=== PATIENT | female | born 1930 | race Caucasian/White ===

== ENCOUNTER 2017-02-05 07:44 | Day surgery (SDC) | payer BC ==
[2017-02-04 15:14] VITALS: BMI 24.7
[2017-02-05 08:33] VITALS: PULSE 66
[2017-02-05] MEDS: CYCLOPENTOLATE 2% OPHTH SOLN 2 ML BOTTLE ONE ×3 (08:35→08:45)
[2017-02-05] MEDS: PHENYLEPHRINE 2.5% OPHTH SOLN 15 ML BOTTLE ONE ×3 (08:35→08:45)
[2017-02-05] MEDS: TROPICAMIDE 1% OPHTH SOLN 15 ML BOTTLE ONE ×3 (08:35→08:45)
[2017-02-05] MEDS: CIPROFLOXACIN 0.3% EYE DROPS 5 ML BOTTLE ONE ×3 (08:35→08:45)
[2017-02-05] MEDS ORDERED: MIDAZOLAM HCL 2 MG/2 ML SINGLE DOSE VIAL ONE (10:03)
[2017-02-05] MEDS ORDERED: BSS (NA/CA/MG/K) BALANCED SALT SOLUTION OPHTH SOLN 15 ML BOTTLE ONE (10:09)
[2017-02-05] MEDS ORDERED: CARBACHOL 0.01% INTRA-OCULAR 1.5 ML VIAL ONE (10:09)
[2017-02-05] MEDS ORDERED: LIDOCAINE 1% P/F 10 MG/ML VIAL ONE (10:09)
[2017-02-05 11:02] VITALS: BP 106/65
[2017-02-05 11:37] VITALS: TEMP 98
--- NOTE | 2017-02-05 14:19 | OP ---
DATE OF OPERATION: 02/05/2017 OPERATIVE PROCEDURE: Lens Phacoemulsification with Posterior Chamber Intraocular Lens Placement, Right Eye PREOPERATIVE DIAGNOSIS: Visually Significant Cataract of Right Eye POSTOPERATIVE DIAGNOSIS: Visually Significant Cataract of Right Eye SURGEON: Kvng Brice M.D. ANESTHESIA: MAC ANESTHESIOLOGIST: PROCEDURE: The patient was brought to the operating room and placed under monitored anesthesia care by Anesthesia. A drop of Tetracaine was then placed over the right eye. The patient was then prepped and draped in the usual sterile manner. A speculum was then placed over the right eye. The eye was then well irrigated with copious amounts of BSS (balanced salt solution). The operating microscope was then moved into position. A paracentesis was performed using a 15 degree blade. At this point 0.5 mL of 1% preservative free-lidocaine was injected into the anterior chamber. Amvisc plus was then injected into the anterior chamber. A clear corneal incision was then formed using a 2.2 mm keratome. A capsulorrhexis was then performed in a continuous circular fashion beginning with a cystotome completed with an Utratas forceps. Hydrodissection was then performed using BSS on a cannula. The phaco probe was then introduced through the corneal wound and the cataract was removed using the phaco chop technique. Approximately 3 seconds of absolute phaco time was used. The remaining cortex was then removed using irrigation and aspiration with an I/A probe. The capsule was then filled with regular Amvisc and the capsule was noted to be intact. A previously selected foldable posterior chamber intraocular lens was then injected into the capsule through the corneal wound using a lens injector. It was then dialed into position using a Sinskey hook. The Amvisc was then removed using irrigation and aspiration. Miostat was then injected through the paracentesis to constrict the pupil. The paracentesis and corneal wound were then hydrated and noted to be water tight. A drop of Maxitrol was then placed over the eye. The speculum was removed and clear shield was taped over the eye. The patient tolerated the procedure well and there were no surgical complications. The patient was asked to follow up in my office the next day. KVNG BRICE M.D. [id number]
== END 2017-02-05 11:25 | disposition home or self-care (01) ==
LOC: FASU 07:44
PROVIDERS: ATTEND Ophthalmology
PROC: 08RJ3JZ Replacement of Right Lens with Synthetic Substitute, Percutaneous Approach (ICD-10-PCS; principal; 2017-02-05 10:23)
DX: H26.8 Other specified cataract (principal)

== ENCOUNTER 2017-03-12 08:33 | Day surgery (SDC) | payer BC ==
[2017-03-10 17:31] VITALS: BMI 24.7
[2017-03-12] MEDS ORDERED: BSS (NA/CA/MG/K) BALANCED SALT SOLUTION OPHTH SOLN 15 ML BOTTLE ONE (09:31)
[2017-03-12] MEDS ORDERED: CARBACHOL 0.01% INTRA-OCULAR 1.5 ML VIAL ONE (09:31)
[2017-03-12] MEDS: PHENYLEPHRINE 2.5% OPHTH SOLN 15 ML BOTTLE ONE ×3 (09:35→09:45)
[2017-03-12] MEDS: CYCLOPENTOLATE 2% OPHTH SOLN 2 ML BOTTLE ONE ×3 (09:35→09:45)
[2017-03-12] MEDS: TROPICAMIDE 1% OPHTH SOLN 15 ML BOTTLE ONE ×3 (09:35→09:45)
[2017-03-12] MEDS: CIPROFLOXACIN 0.3% EYE DROPS 5 ML BOTTLE ONE ×3 (09:35→09:45)
[2017-03-12] MEDS ORDERED: MIDAZOLAM HCL 2 MG/2 ML SINGLE DOSE VIAL ONE (10:35)
[2017-03-12 11:32] VITALS: TEMP 97.9
[2017-03-12 12:02] VITALS: BP 129/64; PULSE 68
[2017-03-12] MEDS ORDERED: ACETAMINOPHEN 325 MG TABLET (FP) PO PRN (15:51)
[2017-03-12] MEDS ORDERED: ONDANSETRON 4 MG/2 ML VIAL IVPUSH PRN (15:51)
[2017-03-12] MEDS ORDERED: LACTATED RINGERS SOLUTION 1,000 ML IV SCH (16:00)
--- NOTE | 2017-03-13 10:27 | OP ---
DATE OF OPERATION: 03/12/2017 OPERATIVE PROCEDURE: Lens Phacoemulsification with Posterior Chamber Intraocular Lens Placement Left Eye PREOPERATIVE DIAGNOSIS: Visually Significant Cataract of Left Eye POSTOPERATIVE DIAGNOSIS: Visually Significant Cataract of Left Eye SURGEON: Kvng Brice M.D. ANESTHESIA: MAC PROCEDURE: The patient was brought to the operating room and placed under monitored anesthesia care by Anesthesia. A drop of Tetracaine was then placed over the left eye. The patient was then prepped and draped in the usual sterile manner. A speculum was then placed over the left eye. The eye was then well irrigated with copious amounts of BSS (balanced salt solution). The operating microscope was then moved into position. A paracentesis was performed using a 15 degree blade. At this point 0.5 mL of 1% preservative-free lidocaine was injected into the anterior chamber. Amvisc plus was then injected into the anterior chamber. A clear corneal incision was then formed using a 2.2 mm keratome. A capsulorrhexis was then performed in a continuous circular fashion beginning with a cystotome, completed with an Utratas forceps. Hydrodissection was then performed using BSS on a cannula. The phaco probe was then introduced through the corneal wound and the cataract was removed using the phaco chop technique. Approximately 3 seconds of absolute phaco time was used. The remaining cortex was then removed using irrigation and aspiration with an I/A probe. The capsule was then filled with regular Amvisc and the capsule was noted to be intact. A previously selected foldable posterior chamber intraocular lens was then injected into the capsule through the corneal wound using a lens injector. It was then dialed into position using a Sinskey hook. The Amvisc was then removed using irrigation and aspiration. Miostat was then injected through the paracentesis to constrict the pupil. The paracentesis and corneal wound were then hydrated and noted to be water tight. A drop of Maxitrol was then placed over the eye. The speculum was removed and clear shield was taped over the eye. The patient tolerated the procedure well and there were no surgical complications. The patient was asked to follow up in my office the next day. KVNG BRICE M.D. [id number]
== END 2017-03-12 12:10 | disposition home or self-care (01) ==
LOC: FASU 08:33
PROVIDERS: ATTEND Ophthalmology
PROC: 08RK3JZ Replacement of Left Lens with Synthetic Substitute, Percutaneous Approach (ICD-10-PCS; principal; 2017-03-12 11:03)
DX: H26.8 Other specified cataract (principal)

== ENCOUNTER 2019-10-11 08:11 | Emergency (ER) | payer BC ==
[2019-10-11 08:16] VITALS: BMI 24.3
--- NOTE | 2019-10-11 08:28 | PDOC ---
History of Present Illness - General Chief Complaint: Pain, Acute Stated Complaint: SLIP AND FALL Time Seen by Provider: 10/11/19 08:17 History Source: Patient Exam Limitations: No Limitations - History of Present Illness Initial Comments: 10/11/19 08:28 89y F hx of COPD, TIA, htn, borderline HL, presents with complaint of head injury. Pt was taking her garbage out this morning when she slipped on the grass and hit her head. Pt denies any nausea/vomiting, dizziness, neck pain, back pain, chest pain, abd pain, blurry vision or double vision, focal numbnes/tingling/weakness. She endorses a mild headache where she hit the wall. Pt put ice on her head, but nots headache seems to be getting worse. Pt takes Plavix. PMD: Dr. 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 MILD COPD) CHF: No Dementia: No Diabetes: No GI Disorders: Yes (ACID REFLUX/HIATAL HERNIA/BLEEDING ULCER YRS. AGO) Disorders: No (MILD "LEAKAGE") HTN: Yes Hypercholesterolemia: Yes (BORDERLINE-NO MEDS) Liver Disease: No Seizures: No Thyroid Disease: No - Surgical History Abdominal Surgery: Yes (SEE BELOW) Appendectomy: No Cardiac Surgery: No Cholecystectomy: No Lung Surgery: No Neurologic Surgery: No Orthopedic Surgery: No (LEFT LEG FX NO SURGERY 1989, RIGHT CARPAL TUNNEL RELEASE) - Psycho-Social/Smoking History Smoking Status: No Smoking History: Never smoked Years of Tobacco Use: 0 Have you smoked in the past 12 months: No Number of Cigarettes Smoked Daily: 0 - Substance Abuse Hx (Audit-C & DAST Scrn) How often the patient has a drink containing alcohol: Never Score: In Men: 4 or > Positive; In Women: 3 or > Positive: 0 Screen Result (Pos requires Nsg. Audit-10AR): Negative In the last yr the pt used illegal drug/Rx for NonMed reason: No Score: Yes response is considered Positive: 0 Screen Result (Positive result requires Nsg. DAST-10): Negative Review of Systems - Review of Systems Able to Perform ROS?: Yes Comments:: 10/11/19 08:32 Constitutional - no reported Fever, Chills, HEENT: no reported vision changes, sore throat Respiratory: no reported cough, sob, hemoptysis Cardiac: no reported chest pain, palpitations, light headedness, leg swelling Abd/GI: no reported abd pain, nausea, vomiting, blood per rectum, melena, diarrhea : no reported dysuria, frequency, discharge Musculskelatal - no reported back pain, joint swelling skin - no reported bruising, erythema, rash neurological: +head pain no reported numbness, focal weakness, tingling, ataxia, hematologic: no reported easy bruising, easy bleeding *Physical Exam - Vital Signs Last Vital Signs Temp Pulse Resp BP Pulse Ox 98.3 F 86 18 178/91 H 100 10/11/19 08:11 10/11/19 08:11 10/11/19 08:11 10/11/19 08:11 10/11/19 08:11 - Physical Exam 10/11/19 08:34 GENERAL: The patient is awake, alert, and fully oriented, Nontoxic - in no acute distress. HEAD: Normocephalic, contusion/ecchymosis on R scalp with mild tenderness, no stepoffs, crepitus EYES: extraocular movements intact, sclera anicteric, conjunctiva clear. ENT: Normal voice, Moist mucous membranes. NECK: Normal range of motion, supple, no focal bony tenderness on cervical/thoracic/lumbar spine LUNGS: Breath sounds equal, clear to auscultation bilaterally. No wheezes, no rhonchi, no rales. HEART: Regular rate and rhythm, normal S1 and S2 without murmur, rub or gallop. ABDOMEN: Soft, nontender, No guarding, no rebound. No CVA tenderness EXTREMITIES: Normal range of motion, trace edema, abrasion on distal thigh superior to patella without any focal bony tenderness, normal ROM of b/l hips/knees. NEUROLOGICAL: No facial assymetry, Normal speech, moving all 4 extreities spontaneosly and symmetrically PSYCH: Normal mood, normal affect. SKIN: Warm, Dry, normal turgor, Medical Decision Making - Medical Decision Making 10/11/19 08:35 89y F presenting sp mechanical fall with head injuiry on plavix w/o loc or other complaints will obtain ct head and cspine. tylenol for pain pts bp noted elevated, she has not yet taken her meds. will give her bp meds after her ct head is neg 10/11/19 09:54 ct head negative will have pt take her bp meds will dc with outpt fu return precautions were discussed I discussed the physical exam findings, ancillary test results and final diagnoses with the patient. I answered all of the patient's questions. The patient was satisfied with the care received and felt comfortable with the discharge plan and treatment plan. The patient will call their primary care physician within 24 hours to arrange follow-up and will return to the Emergency Department with any new, persistent or worsening symptoms. 10/11/19 11:19 BP Improved will dc wi outpatient mgmt Discharge - Discharge Information Problems reviewed: Yes Clinical Impression/Diagnosis: Head injury Qualifiers: Encounter type: initial encounter Qualified Code(s): S09.90XA - Unspecified injury of head, initial encounter HTN (hypertension) Qualifiers: Hypertension type: unspecified Qualified Code(s): I10 - Essential (primary) hypertension Condition: Improved Disposition: HOME - Admission No - Follow up/Referral Referrals: Callum Carrasco MD [Primary Care Provider] - - Patient Discharge Instructions Patient Printed Discharge Instructions: DI for Closed Head Injury Additional Instructions: Return to the emergency department immediately with ANY new, persistent or worsening symptoms. You MUST call and follow up with your doctor tomorrow for further evaluation of your symptoms. Results were discussed with you. Please make sure your doctor reviews the results of your emergency evaluation. Your Emergency Department visit is not complete without a follow up with your doctor. If you had any xrays during your visit, it was read preliminarily by myself, a Radiologist will review it and if there are any additional findings we will call you. - Post Discharge Activity
[2019-10-11] MEDS ORDERED: ACETAMINOPHEN 325 MG TABLET (FP) PO ONE (09:56)
[2019-10-11] MEDS ORDERED: ACETAMINOPHEN 325 MG TABLET (FP) ONE (10:15)
[2019-10-11 10:41] VITALS: TEMP 98.1
[2019-10-11 11:16] VITALS: BP 178/83; PULSE 77
== END 2019-10-11 11:19 | disposition home or self-care (01) ==
LOC: FER 08:11
DX: S09.90XA Unspecified injury of head, initial encounter (principal); I10 Essential (primary) hypertension
CPT/HCPCS: 70450-TC; 72125-TC; 99284-25

== ENCOUNTER 2019-11-24 18:21 | Inpatient (IN) | payer BC, OTHER ==
--- NOTE | 2019-11-24 18:54 | PDOC ---
History of Present Illness - General Chief Complaint: Pain Stated Complaint: ABDOMINAL PAIN FOR A COUPLE OF DAYS Time Seen by Provider: 11/24/19 18:50 History Source: Patient Exam Limitations: No Limitations - History of Present Illness Initial Comments: 11/24/19 18:51 89-year-old female history of hypertension prior hysterectomy and history of diverticulitis here today complaining of severe abdominal pain x2 days. Patient states she was having constipation for the last few days did take some MiraLAX to try to relieve herself this morning had a bowel movement but has been having worsening pain since. Complaining of nausea no vomiting pain is worse with walking and any touching of the belly described as lower abdominal and left- sided pain no fever no chills no cough no urinary symptoms pain is constant and dull Past History - Medical History Allergies/Adverse Reactions: Allergies Allergy/AdvReac Type Severity Reaction Status Date / Time No Known Allergies Allergy Verified 11/24/19 18:24 Home Medications: Ambulatory Orders Clopidogrel Bisulfate [Plavix -] 75 mg PO ASDIR 05/03/14 Losartan Potassium 50 mg PO DAILY 05/18/15 Anemia: No Asthma: No Cancer: No Cardiac Disorders: No CVA: (MULTIPLE TIAS, 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 MILD COPD) CHF: No Dementia: No Diabetes: No GI Disorders: Yes (ACID REFLUX/HIATAL HERNIA/BLEEDING ULCER YRS. AGO) Disorders: No (MILD "LEAKAGE") HTN: Yes Hypercholesterolemia: Yes (BORDERLINE-NO MEDS) Liver Disease: No Seizures: No Thyroid Disease: No - Surgical History Abdominal Surgery: Yes (SEE BELOW) Appendectomy: No Cardiac Surgery: No Cholecystectomy: No Lung Surgery: No Neurologic Surgery: No Orthopedic Surgery: No (LEFT LEG FX NO SURGERY 1989, RIGHT CARPAL TUNNEL RELEASE) - Psycho-Social/Smoking History Smoking Status: No Smoking History: Never smoked Years of Tobacco Use: 0 Have you smoked in the past 12 months: No Number of Cigarettes Smoked Daily: 0 Information on smoking cessation initiated: No - Substance Abuse Hx (Audit-C & DAST Scrn) How often the patient has a drink containing alcohol: Never Score: In Men: 4 or > Positive; In Women: 3 or > Positive: 0 Screen Result (Pos requires Nsg. Audit-10AR): Negative In the last yr the pt used illegal drug/Rx for NonMed reason: No Score: Yes response is considered Positive: 0 Screen Result (Positive result requires Nsg. DAST-10): Negative Review of Systems - Review of Systems Constitutional: No: Chills, Fever HEENTM: No: Eye Pain Respiratory: No: Cough, Shortness of Breath Cardiac (ROS): No: Chest Pain ABD/GI: Yes: Constipated, Nausea. No: Diarrhea, Vomiting : No: Burning, Dysuria, Discharge Musculoskeletal: No: Back Pain, Joint Pain Integumentary: No: Bruising, Change in Color Neurological: No: Headache, Numbness, Paresthesia All Other Systems: Reviewed and Negative *Physical Exam - Vital Signs Last Vital Signs Temp Pulse Resp BP Pulse Ox 98.4 F 96 H 18 128/56 L 96 11/24/19 18:24 11/24/19 18:24 11/24/19 18:24 11/24/19 18:24 11/24/19 18:24 - Physical Exam 11/24/19 19:02 Awake alert no acute distress lungs are clear bilaterally heart is regular without murmurs rubs or gallops abdomen is diffusely tender worse in the left lower quadrant there is rebound and guarding no palpable hernia extremities are warm well perfused patient is awake alert and oriented x3 Medical Decision Making - Medical Decision Making 11/24/19 19:02 89-year-old female history of prior TIA hypertension hysterectomy here today with severe worsening lower abdominal pain. Significant tenderness on my exam differential includes bowel obstruction, perforated diverticulitis or diverticulitis, volvulus, ischemic bowel plan CBC CMP lactic acid type and screen CT abdomen pelvis was ordered. Patient was given Tylenol per her request for pain as well as an antiemetic UA to rule out UTI Discharge - Discharge Information Problems reviewed: Yes Clinical Impression/Diagnosis: Abdominal pain Condition: Stable - Follow up/Referral Referrals: Callum Carrasco MD [Primary Care Provider] - - Patient Discharge Instructions - Post Discharge Activity
[2019-11-24] MEDS ORDERED: ACETAMINOPHEN 1000 MG/100 ML VIAL (NON FORMULARY) IVPB ONE (19:00)
[2019-11-24] MEDS ORDERED: ACETAMINOPHEN INJECTION 100 ML IVPB ONE (19:03)
[2019-11-24] MEDS ORDERED: ONDANSETRON 4 MG/2 ML VIAL IVPUSH ONE (19:16)
[2019-11-24] MEDS ORDERED: ONDANSETRON 4 MG/2 ML VIAL ONE (19:17)
[2019-11-24 19:27] LABS: BASO % 0.4 % (0-2.0); EOS % 0.1 % (0-4.5); HEMATOCRIT 38.9 % (32.4-45.2); HEMOGLOBIN 13.3 GM/dl (10.7-15.3); LYMPH % 2.1 % (8-40); MCHC 34.1 g/dl (32.0-36.0); MEAN CELL VOLUME 93.7 fl (80-96); MONO % 3.9 % (3.8-10.2); NEUT % 93.5 % (42.8-82.8); PLATELET COUNT 128 K/MM3 (134-434); RBC 4.15 M/mm3 (3.60-5.2); RDW 12.8 % (11.6-15.6); WHITE BLOOD COUNT 5.5 K/mm3 (4.0-10.8)
--- NOTE | 2019-11-24 19:36 | PDOC ---
*Physical Exam - Vital Signs Last Vital Signs Temp Pulse Resp BP Pulse Ox 98.4 F 96 H 18 128/56 L 96 11/24/19 18:24 11/24/19 18:24 11/24/19 18:24 11/24/19 18:24 11/24/19 18:24 ED Treatment Course - LABORATORY CBC & Chemistry Diagram: 11/24/19 19:14 11/24/19 19:14 - ADDITIONAL ORDERS Additional order review: 11/24/19 19:14 RBC 4.15 MCV 93.7 MCHC 34.1 RDW 12.8 MPV 8.0 Neutrophils % 93.5 H Lymphocytes % 2.1 L Monocytes % 3.9 Eosinophils % 0.1 Basophils % 0.4 - Medications Given in the ED: ED Medications Discontinued Medications Generic Name Dose Route Start Last Admin Trade Name Freq PRN Reason Stop Dose Admin Acetaminophen 1,000 mg 11/24/19 19:00 11/24/19 19:06 Ofirmev Injection - IVPB 11/24/19 19:01 1,000 mg ONCE ONE Administration Ondansetron HCl 4 mg 11/24/19 19:16 11/24/19 19:21 Zofran Injection IVPUSH 11/24/19 19:17 4 mg ONCE ONE Administration Medical Decision Making - Medical Decision Making 11/24/19 23:33 As noted above, this 89-year-old woman presents with a few day history of gene ralized abdominal pain associated with nausea (no vomiting). The patient states that she also has been somewhat constipated during this time although she is still passing gas and having small bowel movements. No previous history of this type of pain. She denies fever/chills. No previous history of abdominal surgery. Laboratory evaluation notable for normal CBC (except for mildly decreased shira telet count of 128,000) chemistry profile notable for elevation of alkaline phosphatase of 279 with total bilirubin of 2.0. Transaminases are also moderately elevated with AST of 460 and ALT of 246. Lipase [place] 9685 Abdominal/pelvic CT with IV contrast notable for moderate gallbladder over distention with possible mild diffuse gallbladder wall thickening. There was trace pericholecystic fluid accumulation. Of note also, there was mild common bile duct dilatation of 0.8 cm as compared to previous study (2013) when CBD was 0.5 cm. There is interval development of small amount of fluid accumulation adjacent to the pancreatic tail without overt necrosis or pseudocyst seen. Because of the possibility of acute cholecystitis is seen on CT, biliary ultrasound was performed: This confirmed gallbladder over distention with mild diffuse wall thickening suggestive of acute cholecystitis. No definite evidence of cholecystolithiasis was seen although there is small amount of inspissated bile and sludge within the gallbladder lumen. Patient requires in hospital admission for acute pancreatitis and further work- up (such as MRI/MRCP). Because of suggestion of acute cholecystitis, IV Zosyn 3.375g given 11/25/19 00:25 Since the patient's top ironer, Dr. Welch, he is away this week and the patient will likely need either MRI/MRCP or ERCP, she will need admission to [facility]. Case discussed with Lacey Soto of [facility] service. On-call top ironer at [facility] is . Case discussed with him. He agrees that patient should be admitted to [facility]. The patient is agreeable to this plan. Dr. Vo, of the general surgery staff is contacted and case discussed with him. 11/25/19 01:50 Patient transferred in stable condition by BLS ambulance to [facility] Discharge - Discharge Information Problems reviewed: Yes Clinical Impression/Diagnosis: Abdominal pain Qualifiers: Abdominal location: periumbilical Qualified Code(s): R10.33 - Periumbilical pain Acute pancreatitis Qualifiers: Pancreatitis type: biliary Acute pancreatitis complication: no infection or necrosis Qualified Code(s): K85.10 - Biliary acute pancreatitis without necrosis or infection Condition: Stable - Admission Yes - Follow up/Referral Referrals: Callum Cararsco MD [Primary Care Provider] - - Patient Discharge Instructions - Post Discharge Activity
[2019-11-24 19:53] LABS: CALCIUM 8.8 mg/dl (8.5-10); CREATININE 0.7 mg/dl (0.55-1.3); POTASSIUM 3.7 mmol/L (3.5-5.1); TOT PROT 6.4 g/dl (6.4-8.2)
[2019-11-24] MEDS ORDERED: PIPERACILLIN/TAZOB 3.375 GM 3.375 GM in DEXTROSE 5%-WATER - 50 ML IVPB ONE (21:38)
[2019-11-24] MEDS ORDERED: PIPERACILLIN/TAZOB 3.375 GM 3.375 GM/50 ML BAG IVPB ONE (21:49)
[2019-11-25] MEDS ORDERED: SODIUM CHLORIDE 1,000 ML IV SCH (00:15)
[2019-11-25 02:46] VITALS: BMI 25.1
--- NOTE | 2019-11-25 03:55 | HP ---
Admitting History and Physical - Primary Care Physician PCP: Callum Carrasco D - Admission Chief Complaint: Abdominal Pain History of Present Illness: This is a 89 y/o female with a PMHx of HTN, Diverticulitis. Who presents to [facility] for severe generalized abdominal pain x 2 days. She reports that the she has been constipated for several days and took Miralax yesterday morning and had one BM. She reports that the abdominal pain is sharper and constant. Patient reports nausea and chills. She denies fever, cough, SOB, dizziness, ENGLE, CP, palpitations, diarrhea, melena, hematochezia, dysuria. Patient denies sick contacts or travel. 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, TIA Cardiovascular: Yes: HTN, Hyperlipdemia Gastrointestinal: Yes: Diverticulitis, GERD Psych: Yes: Anxiety - Past Surgical History Past Surgical History: Yes: Hysterectomy Additional Past Surgical History: Right Carpal Tunnel Release - Smoking History Smoking history: Never smoked Have you smoked in the past 12 months: No Aproximately how many cigarettes per day: 0 - Alcohol/Substance Use Hx Alcohol Use: Yes (RARE) History of Substance Use: reports: None - Social History Usual Living Arrangement: Yes: Other (Sister) ADL: Independent History of Recent Travel: No Home Medications - Allergies Allergies/Adverse Reactions: Allergies Allergy/AdvReac Type Severity Reaction Status Date / Time No Known Allergies Allergy Verified 11/24/19 18:24 - Home Medications Home Medications: Ambulatory Orders Clopidogrel Bisulfate [Plavix -] 75 mg PO ASDIR 05/03/14 Losartan Potassium 50 mg PO DAILY 05/18/15 Family Medical History Family History: Unremarkable Review of Systems - Review of Systems Constitutional: reports: Chills, Loss of Appetite, Malaise Eyes: reports: No Symptoms HENT: reports: No Symptoms Neck: reports: No Symptoms Cardiovascular: reports: No Symptoms Respiratory: reports: No Symptoms Gastrointestinal: reports: Abdominal Pain, Constipation Genitourinary: reports: No Symptoms Breasts: reports: No Symptoms Reported Musculoskeletal: reports: No Symptoms Integumentary: reports: No Symptoms Neurological: reports: No Symptoms Endocrine: reports: No Symptoms Hematology/Lymphatic: reports: No Symptoms Psychiatric: reports: No Symptoms Pain Intensity: 8 Physical Examination Vital Signs: Vital Signs Temperature 98.7 F 11/25/19 02:37 Pulse Rate 74 11/25/19 02:37 Respiratory Rate 20 11/25/19 02:50 Blood Pressure 137/57 L 11/25/19 02:37 O2 Sat by Pulse Oximetry (%) 96 11/25/19 02:50 Constitutional: Yes: Mild Distress, Thin Eyes: Yes: WNL, Conjunctiva Clear, EOM Intact, PERRL HENT: Yes: WNL, Atraumatic, Normocephalic Neck: Yes: WNL, Supple, Trachea Midline Cardiovascular: Yes: Regular Rate and Rhythm, S1, S2 Respiratory: Yes: WNL, Regular, CTA Bilaterally Gastrointestinal: Yes: Soft, Hyperactive Bowel Sounds, Tenderness (generalized), Tenderness, Epigastrium Renal/: Yes: WNL Breast(s): Yes: WNL Musculoskeletal: Yes: WNL Extremities: Yes: WNL Edema: No Peripheral Pulses WNL: Yes Integumentary: Yes: WNL Neurological: Yes: WNL, Alert, Oriented, Weakness Psychiatric: Yes: WNL, Alert, Oriented Labs: CBC, BMP 11/24/19 19:14 11/24/19 19:14 Laboratory Results - last 24 hr 11/24/19 11/24/19 11/24/19 19:11 19:11 19:12 WBC RBC Hgb Hct MCV MCH MCHC RDW Plt Count MPV Absolute Neuts (auto) Neutrophils % Lymphocytes % Monocytes % Eosinophils % Basophils % Sodium Potassium Chloride Carbon Dioxide Anion Gap BUN Creatinine Est GFR (CKD-EPI)AfAm Est GFR (CKD-EPI)NonAf Random Glucose Lactic Acid 1.4 Calcium Total Bilirubin AST ALT Alkaline Phosphatase Total Protein Albumin Lipase Blood Type B POSITIVE B POSITIVE Antibody Screen Positive Antibody Identification Cold antibody Antigen Identification No Result Required. 11/24/19 11/24/19 19:14 19:14 WBC 5.5 RBC 4.15 Hgb 13.3 Hct 38.9 MCV 93.7 MCH 32.0 MCHC 34.1 RDW 12.8 Plt Count 128 L MPV 8.0 Absolute Neuts (auto) 5.2 Neutrophils % 93.5 H Lymphocytes % 2.1 L Monocytes % 3.9 Eosinophils % 0.1 Basophils % 0.4 Sodium 136 Potassium 3.7 Chloride 100 Carbon Dioxide 25 Anion Gap 11 BUN 14.0 Creatinine 0.7 Est GFR (CKD-EPI)AfAm 89.03 Est GFR (CKD-EPI)NonAf 76.82 Random Glucose 113 H Lactic Acid Calcium 8.8 Total Bilirubin 2.0 H AST 460 H ALT 246 H Alkaline Phosphatase 279 H Total Protein 6.4 Albumin 4.0 Lipase 9685 H Blood Type Antibody Screen Antibody Identification Antigen Identification Intake & Output 11/22/19 11/23/19 11/24/19 11/25/19 23:59 23:59 23:59 23:59 Weight 59.421 kg 60.328 kg Imaging - Results Chest X-ray: Image Reviewed Cat Scan: Report Reviewed, Image Reviewed Ultrasound: Report Reviewed, Image Reviewed EKG: Image Reviewed Problem List - Problems (1) Acute pancreatitis Assessment/Plan: Lipase 9685 NS fluids, Zofran given in ED Continue gentle iVF concern for fluid overload Appreciate GI consult Zofran prn NPO Monitor CBC, CMP Monitor vitals Code(s): K85.90 - ACUTE PANCREATITIS WITHOUT NECROSIS OR INFECTION, UNSP Qualifiers: Pancreatitis type: biliary Acute pancreatitis complication: no infection or necrosis Qualified Code(s): K85.10 - Biliary acute pancreatitis without necrosis or infection (2) Cholecystitis, acute Assessment/Plan: Gallbladder US report- gallbladder over-distention, mild diffuse wall thickening suggestive of acute cholecystitis. CBD dilatation 1.1cm CTAP report-mild biliary tract dilatation MRI/MRCP evaluation is suggested. mild diffuse gallbladder wall thickening. Trace pericholecystic fluid accumulation. ?acute cholecystitis Zosyn given in ED, will continue Surgical Consult with ethel Rico- per ED Appreciate ID consult Gentle IVF Monitor CBC, CMP Monitor vitals NPO Code(s): K81.0 - ACUTE CHOLECYSTITIS (3) Transaminitis Assessment/Plan: Likely secondary to Common Bile Duct dilatation/Stone vs Medication vs Hepatitis Appreciate GI consult Hepatitis preschool principal LFTs Code(s): R74.0 - NONSPEC ELEV OF LEVELS OF TRANSAMNS & LACTIC ACID DEHYDRGNSE (4) HTN (hypertension) Assessment/Plan: stable Hold home med for now Monitor renal function Code(s): I10 - ESSENTIAL (PRIMARY) HYPERTENSION Qualifiers: Hypertension type: unspecified Qualified Code(s): I10 - Essential (primary) hypertension (5) Hyperlipidemia Assessment/Plan: Hold Statins secondary to Transaminitis Code(s): E78.5 - HYPERLIPIDEMIA, UNSPECIFIED (6) Encounter for screening laboratory testing for COVID-19 virus Assessment/Plan: Low Risk COVID PCR-pending Isolation Precautions Code(s): Z11.59 - ENCOUNTER FOR SCREENING FOR OTHER VIRAL DISEASES Assessment/Plan This is a 89 y/o female with a PMHx of HTN, Diverticulitis. Admitted to [facility] for Acute Pancreatitis, Acute Cholecystitis, Transaminitis for further evaluation of their emergent condition. Plan: See Problem List FEN LR@75ml/hr Replete lytes prn NPO DVT ppx OOB SCDs Heparin SQ Dispo: Requires Inpatient Care Visit type - Medication Review Med list reviewed for High Risk Meds patients 65 and older: Yes - Emergency Visit Emergency Visit: Yes ED Registration Date: 11/24/19 Care time: The patient presented to the Emergency Department on the above date and was hospitalized for further evaluation of their emergent condition. - New Patient This patient is new to me today: Yes Date on this admission: 11/25/19 - Critical Care Critical Care patient: No
[2019-11-25] MEDS ORDERED: LACTATED RINGERS SOLUTION 1,000 ML/1,000 ML INFUS.BAG IV SCH (04:00)
[2019-11-25] MEDS ORDERED: ONDANSETRON 4 MG/2 ML VIAL IVPUSH PRN (04:03)
[2019-11-25] MEDS ORDERED: MORPHINE SULFATE 2 MG/ML VIAL IVPUSH PRN (04:33)
[2019-11-25] MEDS ORDERED: PIPERACILLIN/TAZOB 3.375 GM 3.375 GM in DEXTROSE 5%-WATER - 50 ML IVPB SCH (06:00)
[2019-11-25] MEDS ORDERED: PIPERACILLIN/TAZOBACTAM 3.375 GM VIAL IVPB ONE ×2 (06:30→17:05)
[2019-11-25] MEDS ORDERED: DEXTROSE 5%-WATER - 50 ML IVPB ONE ×2 (06:31→17:05)
[2019-11-25] MEDS: PIPERACILLIN/TAZOB 3.375 GM 3.375 GM in DEXTROSE 5%-WATER - 50 ML IVPB SCH ×3 (06:37→17:11)
[2019-11-25 07:43] LABS: EPITHELIAL CELLS FEW /hpf
[2019-11-25 09:23] LABS: IRON SERUM 12 ug/dL (50-175); TOTAL IRON BINDING CAPACITY 224 ug/dL (250-450)
--- NOTE | 2019-11-25 09:49 | CONSULT ---
<Lloyd Rankin P - Last Filed: 11/25/19 10:08> - Consultation REQUESTING PROVIDER: General Surgery - Damir Vo CONSULT REQUEST: We have been asked to surgically evaluate this patient for RUQ abd pain. Hospitalist: Pepper Patel History Source: Patient Limitations to Obtaining History: No Limitations HPI: Called to carisa 89 yo female with PMHx as noted below. Initially presented to [facility] ED w/ c/o abd pain x 2 days. Per medical charting, patient has c/o constipation x2 days. Attempted to alleviate with Mirilax. Last BM 11/23/19. ABD pain constant. Associated with nausea but no vomiting. Denies fever, cp, palpitations, sob or christina. Denies diarrhea, melena, hematochazia, dysuria, hematuria. Denies sick contacts or recent travel. Denies trauma. While in the ED her hepatic panel shows elevated T.bili 2.0, AST/ALT/ALKPHOS. ABD U/S: overdistended gall bladder, diffuse wall thickening, CBD 1.1cm ABD CT: as above but also trace pericholecystic fluid. Small amount of fluid accumulation noted adjacent to pancreatic tail posteriorly and also abutting left inferolateral border of gastric body. PMHx: Migraine, TIA, HTN, HLD, Diverticulitis, GERD, Anxiety PSHx: Hysterectomy. Right Carpal Tunnel Release Home Medications Plavix 75 mg PO Daily Losartan 50 mg PO Daily Allergies: NKDA ROS: 12 system review conducted and considered negative except for what's contained in the HPI. PE: GENERAL: A&O. NAD HEAD: NC. AT. EYES: PERRL, sclera anicteric, conjunctiva clear. NECK: Normal ROM, supple without lymphadenopathy, JVD, or masses. LUNGS: Unlabored respirations on room air HEART: RRR ABD: Not distended, normoactive bowel sounds, Soft, +Zacarias's. No HSM appreciated MUSCULOSKELETAL: No CVAT bilat UE: 2+ pulses, warm, well-perfused. No cyanosis. Cap refill <2 seconds. No peripheral edema. LE: 2+ pulses, warm, well-perfused. No calf tenderness. No peripheral edema. NEURO: Normal speech, gait not observed. PSYCH: Cooperative. Good eye contact. Appropriate mood and affect. SKIN: Warm, dry, normal turgor, no rashes or lesions noted. Last Vital Signs Temp Pulse Resp BP Pulse Ox 98.7 F 74 20 137/57 L 96 11/25/19 02:37 11/25/19 02:37 11/25/19 02:50 11/25/19 02:37 11/25/19 02:50 CBC, BMP 11/24/19 19:14 11/24/19 19:14 Blood Type Blood Type B POSITIVE 11/24/19 19:12 Hepatic Panel Total Bilirubin 2.0 mg/dl (0.2-1) H 11/24/19 19:14 AST 460 U/L (15-37) H 11/24/19 19:14 ALT 246 U/L (13-61) H 11/24/19 19:14 Alkaline Phosphatase 279 U/L (45-117) H 11/24/19 19:14 Albumin 4.0 g/dl (3.4-5.0) 11/24/19 19:14 Urine Test Results Urine Color Yellow 11/24/19 01:07 Urine Appearance Clear 11/24/19 01:07 Urine pH 7.0 (4.5-8) 11/24/19 01:07 Urine Protein Trace (NEGATIVE) 11/24/19 01:07 Urine Glucose (UA) Negative (NEGATIVE) 11/24/19 01:07 Urine Ketones Negative (NEGATIVE) 11/24/19 01:07 Urine Blood Trace-intact (NEGATIVE) 11/24/19 01:07 Urine Nitrite Negative (NEGATIVE) 11/24/19 01:07 Urine Bilirubin Negative (NEGATIVE) 11/24/19 01:07 Ur Leukocyte Esterase Negative (NEGATIVE) 11/24/19 01:07 Urine RBC 2-5 /hpf (0-4) 11/24/19 01:07 Urine WBC 0-2 (NEGATIVE) 11/24/19 01:07 Laboratory Tests 11/24/19 19:14 Lipase 9685 H Serology Test 11/25/19 01:07 COVID-19 (FINN) Pending A/P: 89 yo female admitted with ABD pain. ABD CT with evidence of over- distended gallbladder and trace pericholecystic fluid. Small amount of fluid accumulation noted adjacent to pancreatic tail posteriorly and also abutting left inferolateral border of gastric body. Patient's elevated T.bili and LFTs warrant further investigation. -GI consult pending -NPO -IVF -GI PPx -DVT PPx -Covid pending; Strict Isolation Precaution -f/u MRCP -Serial ABD exams -Trend Lipase and LFTs -f/u Hepatitis panel -Surgery Team to cont following Above plan discussed with Dr. Vo and agrees Problem List - Problems (1) Abdominal pain Code(s): R10.9 - UNSPECIFIED ABDOMINAL PAIN Qualifiers: Abdominal location: periumbilical Qualified Code(s): R10.33 - Periumbilical pain (2) Acute pancreatitis Code(s): K85.90 - ACUTE PANCREATITIS WITHOUT NECROSIS OR INFECTION, UNSP Qualifiers: Pancreatitis type: biliary Acute pancreatitis complication: no infection or necrosis Qualified Code(s): K85.10 - Biliary acute pancreatitis without necrosis or infection (3) Cholecystitis, acute Code(s): K81.0 - ACUTE CHOLECYSTITIS (4) Transaminitis Code(s): R74.0 - NONSPEC ELEV OF LEVELS OF TRANSAMNS & LACTIC ACID DEHYDRGNSE (5) HTN (hypertension) Code(s): I10 - ESSENTIAL (PRIMARY) HYPERTENSION Qualifiers: Hypertension type: unspecified Qualified Code(s): I10 - Essential (primary) hypertension Visit type - Case Type Case Type: ED Admission - Emergency Emergency Visit: Yes ED Registration Date: 11/25/19 Care time: The patient presented to the Emergency Department on the above date and was hospitalized for further evaluation of their emergent condition. - New patient This patient is new to me today: Yes Date on this admission: 11/25/19 <Damir Vo - Last Filed: 11/26/19 10:17> - Consultation Attending Surgeon: I personally saw and examined the patient. My examination reveals a patient with symptomatic biliary tract disease. I discussed the case with the surgical PA and agree with their findings and plan of care with any exceptions as noted. ~ Damir Vo MD, FACS
[2019-11-25] MEDS: LACTATED RINGERS SOLUTION 1,000 ML/1,000 ML INFUS.BAG IV SCH ×2 (10:19→17:10)
--- NOTE | 2019-11-25 12:15 | PN ---
Physical Exam: SUBJECTIVE: Patient seen and examined at bedside. No acute events reported overnight. This morning patient continues to complain of diffuse abdominal pain. OBJECTIVE: Vital Signs Period Temp Pulse Resp BP Sys/[place] Pulse Ox Last 24 Hr 98.4 F-98.7 F 74-96 18-20 116-137/56-62 96-96 GENERAL: AAOx3, in no acute distress HEENT: NCAT, PERRLA, EOMI, sclera anicteric, conjunctiva clear, oropharynx clear w/o exudates. MMM. NECK: Normal ROM, supple, no lymphadenopathy, JVD, or masses LUNGS: CTABL no wheezes/ rhonchi/ rales. No distress, speaks in full sentences. No increased work of breathing. HEART: RRR, normal S1 S2, no M/R/G, peripheral pulses 2+ and equal b/l ABDOMEN: Soft, diffuse tenderness, + BS. No guarding or rebound. + Zacarias's sign. No hepatomegaly or splenomegaly. MSK: ROM WNL EXTREMITIES: Normal inspection. No peripheral edema. No clubbing or cyanosis. NEUROLOGICAL: CN II-XII intact. Normal speech, normal gait, no focal sensorimotor deficits. SKIN: Warm, Dry, normal turgor, no rashes or lesions noted Laboratory Results - last 24 hr CBC, BMP 11/24/19 19:14 11/24/19 19:14 11/24/19 11/24/19 11/24/19 01:07 19:11 19:11 WBC RBC Hgb Hct MCV MCH MCHC RDW Plt Count MPV Absolute Neuts (auto) Neutrophils % Lymphocytes % Monocytes % Eosinophils % Basophils % Sodium Potassium Chloride Carbon Dioxide Anion Gap BUN Creatinine Est GFR (CKD-EPI)AfAm Est GFR (CKD-EPI)NonAf Random Glucose Lactic Acid 1.4 Calcium Iron TIBC Iron Saturation Unsaturated IBC Total Bilirubin AST ALT Alkaline Phosphatase Total Protein Albumin Lipase Urine Color Yellow Urine Appearance Clear Urine pH 7.0 Urine Protein Trace Urine Glucose (UA) Negative Urine Ketones Negative Urine Blood Trace-intact Urine Nitrite Negative Urine Bilirubin Negative Urine Urobilinogen 4.0 e.u/dl H Ur Leukocyte Esterase Negative Urine RBC 2-5 Urine WBC 0-2 Ur Transition Epith Cell Few Blood Type B POSITIVE Antibody Screen Positive Antibody Identification Cold antibody Antigen Identification No Result Required. 11/24/19 11/24/19 11/24/19 19:12 19:14 19:14 WBC 5.5 RBC 4.15 Hgb 13.3 Hct 38.9 MCV 93.7 MCH 32.0 MCHC 34.1 RDW 12.8 Plt Count 128 L MPV 8.0 Absolute Neuts (auto) 5.2 Neutrophils % 93.5 H Lymphocytes % 2.1 L Monocytes % 3.9 Eosinophils % 0.1 Basophils % 0.4 Sodium 136 Potassium 3.7 Chloride 100 Carbon Dioxide 25 Anion Gap 11 BUN 14.0 Creatinine 0.7 Est GFR (CKD-EPI)AfAm 89.03 Est GFR (CKD-EPI)NonAf 76.82 Random Glucose 113 H Lactic Acid Calcium 8.8 Iron TIBC Iron Saturation Unsaturated IBC Total Bilirubin 2.0 H AST 460 H ALT 246 H Alkaline Phosphatase 279 H Total Protein 6.4 Albumin 4.0 Lipase 9685 H Urine Color Urine Appearance Urine pH Urine Protein Urine Glucose (UA) Urine Ketones Urine Blood Urine Nitrite Urine Bilirubin Urine Urobilinogen Ur Leukocyte Esterase Urine RBC Urine WBC Ur Transition Epith Cell Blood Type B POSITIVE Antibody Screen Antibody Identification Antigen Identification 11/25/19 07:20 WBC RBC Hgb Hct MCV MCH MCHC RDW Plt Count MPV Absolute Neuts (auto) Neutrophils % Lymphocytes % Monocytes % Eosinophils % Basophils % Sodium Potassium Chloride Carbon Dioxide Anion Gap BUN Creatinine Est GFR (CKD-EPI)AfAm Est GFR (CKD-EPI)NonAf Random Glucose Lactic Acid Calcium Iron 12 L TIBC 224 L Iron Saturation 5 L Unsaturated IBC 212 Total Bilirubin AST ALT Alkaline Phosphatase Total Protein Albumin Lipase Urine Color Urine Appearance Urine pH Urine Protein Urine Glucose (UA) Urine Ketones Urine Blood Urine Nitrite Urine Bilirubin Urine Urobilinogen Ur Leukocyte Esterase Urine RBC Urine WBC Ur Transition Epith Cell Blood Type Antibody Screen Antibody Identification Antigen Identification Active Medications Generic Name Dose Route Start Last Admin Trade Name Freq PRN Reason Stop Dose Admin Piperacillin Sod/Tazobactam 50 mls @ 100 mls/hr 11/25/19 06:00 Sod 3.375 gm/ Dextrose IVPB Q8H-IV CARMEN Protocol Piperacillin Sod/Tazobactam 50 mls @ 100 mls/hr 11/25/19 05:00 11/25/19 10:18 Sod 3.375 gm/ Dextrose IVPB 11/25/19 18:29 100 mls/hr Q8H-IV CARMEN Administration Protocol Lactated Ringer's 1,000 ml in 1,000 mls @ 125 mls/hr 11/25/19 08:21 11/25/19 10:19 Lactated Ringers Solution IV 11/26/19 16:20 125 mls/hr ASDIR CARMEN Administration Morphine Sulfate 0.5 mg 11/25/19 04:33 Morphine Sulfate IVPUSH Q4H PRN PAIN LEVEL 6-10 Ondansetron HCl 4 mg 11/25/19 04:03 Zofran Injection IVPUSH Q6H PRN NAUSEA AND/OR VOMITING ASSESSMENT/PLAN: #Acute Pancreatitis -Lipase level at admission was 9685 -LR fluids -NPO -Zofran PRN -GI consulted #Acute Cholecystitis -CT scan: mild extrahepatic and intrahepatic billary tract dilation; gallbladder overdistention. MRI/MRCP recommended -Gallbladder US: gallbladder over-distention, mild diffuse wall thickening suggestive of acute cholecystitis. CBD dilatation 1.1cm -General Surgery team consulted and recommended MRCP -Patient is scheduled for MRCP w/o contrast today at 5:30 PM -Patient to continue Zosyn as per ID -NPO #Transaminitis -Likely secondary to Common Bile Duct dilatation/Stone -GI consulted -Hepatitis panel ordered -continue to monitor LFTs #Hypertension -HTN medications are being held for now #Hyperlipidemia -Hold Statins for now due to elevated liver enzymes #FEN -LR @ 125 mls/hr -monitor electrolytes -NPO #Prophylaxis - Heparin SQ #Dispo - Monitor in M/S Visit type - Emergency Visit Emergency Visit: No - New Patient This patient is new to me today: Yes Date on this admission: 11/25/19 - Critical Care Critical Care patient: No - Discharge Referral Referred to [facility] No - Medication Review Med list reviewed for High Risk Meds patients 65 and older: Yes ATTENDING PHYSICIAN STATEMENT I saw and evaluated the patient. I reviewed the resident's note and discussed the case with the resident. I agree with the resident's findings and plan as documented. SUBJECTIVE: OBJECTIVE: ASSESSMENT AND PLAN:
--- NOTE | 2019-11-25 12:37 | EKG ---
Test Reason : Blood Pressure : / mmHG Vent. Rate : 089 BPM Atrial Rate : 089 BPM P-R Int : 166 ms QRS Dur : 080 ms QT Int : 380 ms P-R-T Axes : 074 040 056 degrees QTc Int : 462 ms NORMAL SINUS RHYTHM NORMAL ECG NO PREVIOUS ECGS AVAILABLE Confirmed by NORBERT FERNANDEZ MD ([id number]) on 11/25/2019 12:37:29 PM Referred By: MD ROWLAND Confirmed By:NORBERT FERNANDEZ MD
--- NOTE | 2019-11-25 13:06 | CON.ID ---
Consult Consult Specialty:: infectious diseases Referred by:: hospitalist Reason for Consultation:: abd pain - History of Present Illness Chief Complaint: abd pain History of Present Illness: 89 y/o female with a PMHx of HTN, Diverticulitis. came to [facility] ED for severe generalized abdominal pain x 2 days. She reports that the she has been constipated for several days and took Miralax yesterday morning and had one BM. She reports that the abdominal pain is sharper and constant. Patient reports nausea and chills. She denies fever, cough, SOB, dizziness, ENGLE, CP, palpitations, diarrhea, melena, hematochezia, dysuria. Patient denies sick contacts or travel. 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, TIA Cardio/Vascular: Yes: HTN, Hyperlipdemia Gastrointestinal: Yes: Diverticulitis, GERD Psych: Yes: Anxiety - Past Surgical History Past Surgical History: Yes: Hysterectomy - Alcohol/Substance Use Hx Alcohol Use: Yes (RARE) History of Substance Use: reports: None - Smoking History Smoking history: Never smoked Have you smoked in the past 12 months: No Aproximately how many cigarettes per day: 0 - Social History ADL: Independent History of Recent Travel: No Home Medications - Allergies Allergies/Adverse Reactions: Allergies Allergy/AdvReac Type Severity Reaction Status Date / Time No Known Allergies Allergy Verified 11/24/19 18:24 - Home Medications Home Medications: Ambulatory Orders Clopidogrel Bisulfate [Plavix -] 75 mg PO ASDIR 05/03/14 Losartan Potassium 50 mg PO DAILY 05/18/15 Review of Systems - Review of Systems Constitutional: reports: No Symptoms Eyes: reports: No Symptoms HENT: reports: No Symptoms Neck: reports: No Symptoms Cardiovascular: reports: No Symptoms Respiratory: reports: No Symptoms Gastrointestinal: reports: Abdominal Pain, Other Genitourinary: reports: No Symptoms Musculoskeletal: reports: No Symptoms Integumentary: reports: No Symptoms Neurological: reports: No Symptoms Endocrine: reports: No Symptoms, Unexplained Weight Gain Psychiatric: reports: No Symptoms Physical Exam Vital Signs: Vital Signs Temperature 98.7 F 11/25/19 09:51 Pulse Rate 72 11/25/19 09:51 Respiratory Rate 20 11/25/19 09:51 Blood Pressure 130/60 11/25/19 09:51 O2 Sat by Pulse Oximetry (%) 96 11/25/19 09:51 Constitutional: Yes: Calm, Mild Distress Eyes: Yes: Conjunctiva Clear HENT: Yes: Atraumatic, Normocephalic Neck: Yes: Supple, Trachea Midline Cardiovascular: Yes: Regular Rate and Rhythm Respiratory: Yes: Regular, CTA Bilaterally Gastrointestinal: Yes: Soft, Hypoactive Bowel Sounds, Tenderness Musculoskeletal: Yes: WNL Extremities: Yes: WNL Neurological: Yes: Alert, Oriented Psychiatric: Yes: Alert, Oriented Labs: CBC, BMP 11/24/19 19:14 11/24/19 19:14 Imaging - Results Chest X-ray: Report Reviewed, Image Reviewed Cat Scan: Report Reviewed, Image Reviewed Ultrasound: Report Reviewed, Image Reviewed Assessment/Plan Problem List - Problems (1) Acute pancreatitis Code(s): K85.90 - ACUTE PANCREATITIS WITHOUT NECROSIS OR INFECTION, UNSP Qualifiers: Pancreatitis type: biliary Acute pancreatitis complication: no infection or necrosis Qualified Code(s): K85.10 - Biliary acute pancreatitis without necrosis or infection (2) Cholecystitis, acute Code(s): K81.0 - ACUTE CHOLECYSTITIS (3) Transaminitis Code(s): R74.0 - NONSPEC ELEV OF LEVELS OF TRANSAMNS & LACTIC ACID DEHYDRGNSE (4) HTN (hypertension) Code(s): I10 - ESSENTIAL (PRIMARY) HYPERTENSION Qualifiers: Hypertension type: unspecified Qualified Code(s): I10 - Essential (primary) hypertension (5) Hyperlipidemia Code(s): E78.5 - HYPERLIPIDEMIA, UNSPECIFIED (6) Encounter for screening laboratory testing for COVID-19 virus Code(s): Z11.59 - ENCOUNTER FOR SCREENING FOR OTHER VIRAL DISEASES Assessment/Plan after loking at the imaging studies any symptoms patient has ac pancreatitis and also probably had a c choley intraheaptic dilation of the ducts noted probably blockage in the cbd plan i am going to continue abx might need mri/mrcp gi to see the patient
--- NOTE | 2019-11-25 18:36 | CON.GI ---
Consult Consult Specialty:: GI coverage for Dr Dawn - History of Present Illness History of Present Illness: 89 y/o F was transferred from [facility] for further evaluation of epigastric and RUQ pain, not associated with nausea and vomiting. She was noted to have elevated liver enzymes, lipase. Abdominal ultrasound revealed dilated CBD. 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, TIA Cardio/Vascular: Yes: HTN, Hyperlipdemia Gastrointestinal: Yes: Diverticulitis, GERD Psych: Yes: Anxiety - Past Surgical History Past Surgical History: Yes: Hysterectomy - Alcohol/Substance Use Hx Alcohol Use: Yes (RARE) History of Substance Use: reports: None - Smoking History Smoking history: Never smoked Have you smoked in the past 12 months: No Aproximately how many cigarettes per day: 0 - Social History ADL: Independent History of Recent Travel: No Home Medications - Allergies Allergies/Adverse Reactions: Allergies Allergy/AdvReac Type Severity Reaction Status Date / Time No Known Allergies Allergy Verified 11/24/19 18:24 - Home Medications Home Medications: Ambulatory Orders Clopidogrel Bisulfate [Plavix -] 75 mg PO ASDIR 05/03/14 Losartan Potassium 100 mg PO DAILY 05/18/15 Famotidine 20 mg DAILY 11/25/19 Physical Exam-GI Vital Signs: Vital Signs Temperature 98.7 F 11/25/19 17:29 Pulse Rate 78 11/25/19 17:29 Respiratory Rate 20 11/25/19 17:29 Blood Pressure 125/49 L 11/25/19 17:29 O2 Sat by Pulse Oximetry (%) 93 L 11/25/19 17:29 Constitutional: Yes: No Distress Eyes: Yes: Conjunctiva Clear HENT: Yes: Atraumatic Neck: Yes: Trachea Midline Cardiovascular: Yes: Regular Rate and Rhythm Respiratory: Yes: CTA Bilaterally ...Palpate: Yes: Soft, Tenderness (--RUQ), Tenderness, Epigastium. No: Firm/Rigid, Guarding, Splenomegaly Labs: CBC, BMP 11/24/19 19:14 11/24/19 19:14 CBC,CMP WBC 5.5 K/mm3 (4.0-10.8) 11/24/19 19:14 RBC 4.15 M/mm3 (3.60-5.2) 11/24/19 19:14 Hgb 13.3 GM/dl (10.7-15.3) 11/24/19 19:14 Hct 38.9 % (32.4-45.2) 11/24/19 19:14 MCV 93.7 fl (80-96) 11/24/19 19:14 MCH 32.0 pg (25.7-33.7) 11/24/19 19:14 MCHC 34.1 g/dl (32.0-36.0) 11/24/19 19:14 RDW 12.8 % (11.6-15.6) 11/24/19 19:14 Plt Count 128 K/MM3 (134-434) L 11/24/19 19:14 MPV 8.0 fl (7.5-11.1) 11/24/19 19:14 Absolute Neuts (auto) 5.2 K/mm3 11/24/19 19:14 Neutrophils % 93.5 % (42.8-82.8) H 11/24/19 19:14 Lymphocytes % 2.1 % (8-40) L 11/24/19 19:14 Monocytes % 3.9 % (3.8-10.2) 11/24/19 19:14 Eosinophils % 0.1 % (0-4.5) 11/24/19 19:14 Basophils % 0.4 % (0-2.0) 11/24/19 19:14 Sodium 136 mmol/L (136-145) 11/24/19 19:14 Potassium 3.7 mmol/L (3.5-5.1) 11/24/19 19:14 Chloride 100 mmol/L (98-107) 11/24/19 19:14 Carbon Dioxide 25 mmol/L (21-32) 11/24/19 19:14 Anion Gap 11 MMOL/L (8-16) 11/24/19 19:14 BUN 14.0 mg/dl (7-18) 11/24/19 19:14 Creatinine 0.7 mg/dl (0.55-1.3) 11/24/19 19:14 Est GFR (CKD-EPI)AfAm 89.03 11/24/19 19:14 Est GFR (CKD-EPI)NonAf 76.82 11/24/19 19:14 Random Glucose 113 mg/dl (74-106) H 11/24/19 19:14 Lactic Acid 1.4 mmol/L (0.4-2.0) 11/24/19 19:11 Calcium 8.8 mg/dl (8.5-10) 11/24/19 19:14 Iron 12 ug/dL (50-175) L 11/25/19 07:20 TIBC 224 ug/dL (250-450) L 11/25/19 07:20 Iron Saturation 5 % (17.5-39) L 11/25/19 07:20 Unsaturated IBC 212 ug/dL (200-275) 11/25/19 07:20 Total Bilirubin 2.0 mg/dl (0.2-1) H 11/24/19 19:14 AST 460 U/L (15-37) H 11/24/19 19:14 ALT 246 U/L (13-61) H 11/24/19 19:14 Alkaline Phosphatase 279 U/L (45-117) H 11/24/19 19:14 Total Protein 6.4 g/dl (6.4-8.2) 11/24/19 19:14 Albumin 4.0 g/dl (3.4-5.0) 11/24/19 19:14 Lipase 9685 U/L (73-393) H 11/24/19 19:14 Problem List - Problems (1) Biliary acute pancreatitis Assessment/Plan: R> IV hydration MRCP for possible ERCP tomorrow risk including and not limited to worsenning pancreatitis,perforation, bleeding and risk of anesthesia was discussed Code(s): K85.10 - BILIARY ACUTE PANCREATITIS WITHOUT NECROSIS OR INFECTION
--- NOTE | 2019-11-25 19:03 | PN ---
Teaching Attending Note Name of Resident: Chapin Ibrahim ATTENDING PHYSICIAN STATEMENT I saw and evaluated the patient. I reviewed the resident's note and discussed the case with the resident. I agree with the resident's findings and plan as documented. SUBJECTIVE: patient continues to have abdominal pain OBJECTIVE: Vital Signs Temperature 98.7 F 11/25/19 17:29 Pulse Rate 78 11/25/19 17:29 Respiratory Rate 20 11/25/19 17:29 Blood Pressure 125/49 L 11/25/19 17:29 O2 Sat by Pulse Oximetry (%) 93 L 11/25/19 17:29 PE: per resident's note CBCD WBC 5.5 K/mm3 (4.0-10.8) 11/24/19 19:14 RBC 4.15 M/mm3 (3.60-5.2) 11/24/19 19:14 Hgb 13.3 GM/dl (10.7-15.3) 11/24/19 19:14 Hct 38.9 % (32.4-45.2) 11/24/19 19:14 MCV 93.7 fl (80-96) 11/24/19 19:14 MCHC 34.1 g/dl (32.0-36.0) 11/24/19 19:14 RDW 12.8 % (11.6-15.6) 11/24/19 19:14 Plt Count 128 K/MM3 (134-434) L 11/24/19 19:14 MPV 8.0 fl (7.5-11.1) 11/24/19 19:14 CMP Sodium 136 mmol/L (136-145) 11/24/19 19:14 Potassium 3.7 mmol/L (3.5-5.1) 11/24/19 19:14 Chloride 100 mmol/L (98-107) 11/24/19 19:14 Carbon Dioxide 25 mmol/L (21-32) 11/24/19 19:14 Anion Gap 11 MMOL/L (8-16) 11/24/19 19:14 BUN 14.0 mg/dl (7-18) 11/24/19 19:14 Creatinine 0.7 mg/dl (0.55-1.3) 11/24/19 19:14 Random Glucose 113 mg/dl (74-106) H 08/26/20 19:14 Calcium 8.8 mg/dl (8.5-10) 11/24/19 19:14 Total Bilirubin 2.0 mg/dl (0.2-1) H 11/24/19 19:14 AST 460 U/L (15-37) H 11/24/19 19:14 ALT 246 U/L (13-61) H 11/24/19 19:14 Alkaline Phosphatase 279 U/L (45-117) H 11/24/19 19:14 Total Protein 6.4 g/dl (6.4-8.2) 11/24/19 19:14 Albumin 4.0 g/dl (3.4-5.0) 11/24/19 19:14 Current Medications Generic Name Dose Route Start Last Admin Trade Name Freq PRN Reason Stop Dose Admin Lactated Ringer's 1,000 ml in 1,000 mls @ 125 mls/hr 11/25/19 08:21 11/25/19 17:10 Lactated Ringers Solution IV 11/26/19 16:20 125 mls/hr ASDIR CARMEN Administration Piperacillin Sod/Tazobactam 50 mls @ 100 mls/hr 11/25/19 18:00 11/25/19 17:11 Sod 3.375 gm/ Dextrose IVPB 100 mls/hr Q8H-IV CARMEN Administration Protocol Morphine Sulfate 0.5 mg 11/25/19 04:33 Morphine Sulfate IVPUSH Q4H PRN PAIN LEVEL 6-10 Ondansetron HCl 4 mg 11/25/19 04:03 Zofran Injection IVPUSH Q6H PRN NAUSEA AND/OR VOMITING Home Medications Medication Instructions Recorded Clopidogrel Bisulfate [Plavix -] 75 mg PO ASDIR 05/03/14 Losartan Potassium 100 mg PO DAILY 05/18/15 Famotidine 20 mg DAILY 11/25/19 CT scan: mild extrahepatic and intrahepatic billary tract dilation; gallbladder overdistention. MRI/MRCP recommended -Gallbladder US: gallbladder over-distention, mild diffuse wall thickening suggestive of acute cholecystitis. CBD dilatation 1.1cm -MRCP: no gross CBD stone. + pericholecystic fluid. ASSESSMENT AND PLAN: This patient is an 89yof with a PMHx of HTN, HLD, Diverticulitis presented to ED with abdominal pain x3 days. and was found to have Acute Pancreatitis/ Cholecystitis. #Acute Gallstone Pancreatitis: with elevated lipase level of 9k; will trend on IVF, GI /sx consult appreciated, NPO for now #Acute Cholecystitis: CT/US result as above continue IV antibiotc, sx and GI on the case #Acute Transaminitis: trend #Hypertension: continue to monitor #Hyperlipidemia: Hold Statins due to elevated liver enzymes DVT Px:Heparin SQ
[2019-11-26] MEDS ORDERED: PIPERACILLIN/TAZOBACTAM 3.375 GM VIAL IVPB ONE ×3 (00:45→17:03)
[2019-11-26] MEDS ORDERED: DEXTROSE 5%-WATER - 50 ML IVPB ONE ×3 (00:46→17:03)
[2019-11-26] MEDS: PIPERACILLIN/TAZOB 3.375 GM 3.375 GM in DEXTROSE 5%-WATER - 50 ML IVPB SCH ×3 (01:00→18:32)
[2019-11-26] MEDS ORDERED: LACTATED RINGERS SOLUTION 1,000 ML/1,000 ML INFUS.BAG IV SCH (06:30)
--- NOTE | 2019-11-26 08:28 | PN ---
Progress Note (short form) - Note Progress Note: SURGERY 89yo F choledocolithiasis and pancreatitis. Pt states pain is improved today. Continues NPO, asking for liquids. Pt denies n/v, fever, chills. Pt had MRCP done yesterday awaiting official read. Last Vital Signs Temp Pulse Resp BP Pulse Ox 98.8 F 80 20 156/82 96 11/26/19 06:00 11/26/19 06:00 11/26/19 06:00 11/26/19 06:00 11/26/19 06:00 CBC, BMP 11/24/19 19:14 11/24/19 19:14 PE: Gen: A&Ox3 Resp: breathing comfortably Abd: soft, nondistended, mild epigastric tenderness <Brian Panda - Last Filed: 11/26/19 08:25> - Note Progress Note: Attending Surgeon: I personally saw and examined the patient. My examination reveals a patient with cholelithiasis possible choledocholithiasis. I discussed the case with the surgical PA and agree with their findings and plan of care with any exceptions as noted. ~ Damir Vo MD, FACS <Damir Vo - Last Filed: 11/26/19 10:15> Problem List - Problems (1) Biliary acute pancreatitis Assessment/Plan: Plan -depending on MRCP read pt may need ERCP will defer to GI -if pt improves over the weekend, and biliary stones/pancreatitis is resolved will consider lap oscar next week. -NPO -IVF -GI PPx -DVT PPx -Covid pending; Strict Isolation Precaution -f/u MRCP -Serial ABD exams -Trend Lipase and LFTs -f/u Hepatitis panel -Surgery Team to cont following Above plan discussed with Dr. Vo and agrees Code(s): K85.10 - BILIARY ACUTE PANCREATITIS WITHOUT NECROSIS OR INFECTION <Brian Panda - Last Filed: 11/26/19 08:25>
[2019-11-26 08:43] LABS: BASO % 0.4 % (0-2.0); EOS % 0.9 % (0-4.5); HEMATOCRIT 34.9 % (32.4-45.2); HEMOGLOBIN 11.8 GM/dL (10.7-15.3); LYMPH % 9.6 % (8-40); MCH 31.2 pg (25.7-33.7); MCHC 33.8 g/dl (32.0-36.0); MEAN CELL VOLUME 92.3 fl (80-96); MEAN PLT VOLUME 8.1 fl (7.5-11.1); MONO % 6.7 % (3.8-10.2); NEUT % 82.4 % (42.8-82.8); PLATELET COUNT 102 K/MM3 (134-434); RBC 3.78 M/mm3 (3.60-5.2); RDW 13.5 % (11.6-15.6); WHITE BLOOD COUNT 5.6 K/mm3 (4.0-10.0)
[2019-11-26 08:48] LABS: INR 1.13 (0.83-1.09); PROTHROMBIN TIME (PATIENT) 13.4 SEC (9.7-13.0)
[2019-11-26 08:50] LABS: ACTIVATED PTT 37.7 SECONDS (25.2-36.5)
[2019-11-26 09:11] LABS: BILIRUBIN,DIRECT 0.5 mg/dL (0.0-0.2)
[2019-11-26 09:15] LABS: BILIRUBIN,TOTAL 1.3 mg/dL (0.2-1); BLOOD UREA NITROGEN 13.7 mg/dL (7-18); CALCIUM 8.4 mg/dL (8.5-10.1); CREATININE 0.5 mg/dL (0.55-1.3); POTASSIUM 3.4 mmol/L (3.5-5.1); TOT PROT 5.9 g/dl (6.4-8.2)
--- NOTE | 2019-11-26 09:59 | PN ---
Progress Note, Physician History of Present Illness: stable pain has improved mri done awaiting results - Current Medication List Current Medications: Active Medications Piperacillin Sod/Tazobactam (Sod 3.375 gm/ Dextrose) 50 mls @ 100 mls/hr IVPB Q8H-IV CARMEN; Protocol Last Admin: 11/26/19 01:00 Dose: 100 mls/hr Documented by: Lactated Ringer's (Lactated Ringers Solution) 1,000 ml in 1,000 mls @ 125 mls/hr IV ASDIR CARMEN Stop: 11/26/19 14:29 Potassium Chloride 20 meq/ (Dextrose) 1,010 mls @ 125 mls/hr IVPB Q8H CARMEN Morphine Sulfate (Morphine Sulfate) 0.5 mg IVPUSH Q4H PRN PRN Reason: PAIN LEVEL 6-10 Ondansetron HCl (Zofran Injection) 4 mg IVPUSH Q6H PRN PRN Reason: NAUSEA AND/OR VOMITING - Objective Vital Signs: Vital Signs Temperature 98.8 F 11/26/19 06:00 Pulse Rate 80 11/26/19 06:00 Respiratory Rate 20 11/26/19 06:00 Blood Pressure 156/82 11/26/19 06:00 O2 Sat by Pulse Oximetry (%) 96 11/26/19 06:00 Constitutional: Yes: No Distress, Calm Cardiovascular: Yes: S1, S2 Respiratory: Yes: Regular, CTA Bilaterally Gastrointestinal: Yes: Soft, Hypoactive Bowel Sounds Musculoskeletal: Yes: WNL Extremities: Yes: WNL Neurological: Yes: Alert, Oriented Psychiatric: Yes: Alert, Oriented Labs: CBC, BMP 11/26/19 07:44 11/26/19 07:44 INR, PTT INR 1.13 (0.83-1.09) H 11/26/19 07:44 Assessment/Plan Problem List - Problems (1) Acute pancreatitis Code(s): K85.90 - ACUTE PANCREATITIS WITHOUT NECROSIS OR INFECTION, UNSP Qualifiers: Pancreatitis type: biliary Acute pancreatitis complication: no infection or necrosis Qualified Code(s): K85.10 - Biliary acute pancreatitis without necrosis or infection (2) Cholecystitis, acute Code(s): K81.0 - ACUTE CHOLECYSTITIS (3) Transaminitis Code(s): R74.0 - NONSPEC ELEV OF LEVELS OF TRANSAMNS & LACTIC ACID DEHYDRGNSE (4) HTN (hypertension) Code(s): I10 - ESSENTIAL (PRIMARY) HYPERTENSION Qualifiers: Hypertension type: unspecified Qualified Code(s): I10 - Essential (primary) hypertension (5) Hyperlipidemia Code(s): E78.5 - HYPERLIPIDEMIA, UNSPECIFIED (6) Encounter for screening laboratory testing for COVID-19 virus Code(s): Z11.59 - ENCOUNTER FOR SCREENING FOR OTHER VIRAL DISEASES Assessment/Plan continue abx await for mri report gi on case surgery on case rest as per the team
[2019-11-26] MEDS: POTASSIUM CHLORIDE 20 MEQ in DEXTROSE 5%-WATER - 1,000 ML IVPB SCH ×3 (12:09→22:51)
--- NOTE | 2019-11-26 12:36 | PN.GI ---
GI Progress Note Subjective: No acute events Spoke with Dr. Wilson: He reviewed MRCP with Dr. Fitch. Not optimal study but no gross CBD stone. + pericholecystic fluid. With improving trend in LFTs and clinical improvement, ERCP was deferred - Objective Vital Signs: Vital Signs Temperature 98.8 F 11/26/19 06:00 Pulse Rate 80 11/26/19 06:00 Respiratory Rate 20 11/26/19 06:00 Blood Pressure 156/82 11/26/19 06:00 O2 Sat by Pulse Oximetry (%) 96 11/26/19 06:00 Constitutional: Calm Eyes: No: Sclera Icterus Cardiovascular: Yes: Regular Rate and Rhythm Respiratory: Yes: CTA Bilaterally Gastrointestinal Inspection: No: Distention ...Auscultate: Yes: Normoactive Bowel Sounds ...Palpate: Yes: Soft, Tenderness (Mild TTP mid abdomen). No: Guarding, Tenderness, Rebound ...Percussion: No: Tympanitic Edema: No (No LE edema) Neurological: Yes: Alert Labs: CBC, BMP 11/26/19 07:44 11/26/19 07:44 INR, PTT INR 1.13 (0.83-1.09) H 11/26/19 07:44 Problem List - Problems (1) Acute pancreatitis Assessment/Plan: Clinically improved with LFT pattern suggesting passed CBD stone / ? acute cholecystitis Advise: Clear liquid diet IV Abx to over for possible cholecystitis (no obvious stones but sludge seen in GB US) Surgical follow-up Monitor LFTs Code(s): K85.90 - ACUTE PANCREATITIS WITHOUT NECROSIS OR INFECTION, UNSP Qualifiers: Pancreatitis type: biliary Acute pancreatitis complication: no infection or necrosis Qualified Code(s): K85.10 - Biliary acute pancreatitis without necrosis or infection
--- NOTE | 2019-11-26 13:08 | PN ---
Physical Exam: SUBJECTIVE: Patient seen and examined at bedside. No acute events reported overnight. This morning patient continues to complain of pain in the mid- epigastric region but reports feeling better than yesterday. OBJECTIVE: Vital Signs Period Temp Pulse Resp BP Sys/[place] Pulse Ox Last 24 Hr 98.4 F-98.8 F 73-80 20-20 125-156/49-82 93-99 GENERAL: AAOx3, in no acute distress HEENT: NCAT, PERRLA, EOMI, sclera anicteric, conjunctiva clear, oropharynx clear w/o exudates. MMM. NECK: Normal ROM, supple, no lymphadenopathy, JVD, or masses LUNGS: CTABL no wheezes/ rhonchi/ rales. No distress, speaks in full sentences. No increased work of breathing. HEART: RRR, normal S1 S2, no M/R/G, peripheral pulses 2+ and equal b/l ABDOMEN: Soft, tenderness in the mid-epigastric region, + BS. No guarding or rebound. No hepatomegaly or splenomegaly. MSK: ROM WNL EXTREMITIES: Normal inspection. No peripheral edema. No clubbing or cyanosis. NEUROLOGICAL: CN II-XII intact. Normal speech, normal gait, no focal sens orimotor deficits. SKIN: Warm, Dry, normal turgor, no rashes or lesions noted Laboratory Results - last 24 hr CBC, BMP 11/26/19 07:44 11/26/19 07:44 11/25/19 11/26/19 11/26/19 07:20 07:44 07:44 WBC 5.6 RBC 3.78 Hgb 11.8 Hct 34.9 MCV 92.3 MCH 31.2 MCHC 33.8 RDW 13.5 Plt Count 102 L MPV 8.1 Absolute Neuts (auto) 4.6 Neutrophils % 82.4 Lymphocytes % 9.6 Monocytes % 6.7 Eosinophils % 0.9 Basophils % 0.4 Nucleated RBC % 0 PT with INR INR PTT (Actin FS) Sodium 138 Potassium 3.4 L Chloride 104 Carbon Dioxide 24 Anion Gap 9 BUN 13.7 Creatinine 0.5 L Est GFR (CKD-EPI)AfAm 99.45 Est GFR (CKD-EPI)NonAf 85.81 Random Glucose 62 L Calcium 8.4 L Total Bilirubin 1.3 H Direct Bilirubin AST 91 H ALT 148 H Alkaline Phosphatase 243 H C-Reactive Protein Total Protein 5.9 L Albumin 3.0 L Triglycerides 76 Cholesterol 165 Total LDL Cholesterol 73 HDL Cholesterol 70 H Total Amylase 73 Lipase 895 H Hepatitis Be Antigen Negative 11/26/19 11/26/19 07:44 07:44 WBC RBC Hgb Hct MCV MCH MCHC RDW Plt Count MPV Absolute Neuts (auto) Neutrophils % Lymphocytes % Monocytes % Eosinophils % Basophils % Nucleated RBC % PT with INR 13.40 H INR 1.13 H PTT (Actin FS) 37.7 H Sodium Potassium Chloride Carbon Dioxide Anion Gap BUN Creatinine Est GFR (CKD-EPI)AfAm Est GFR (CKD-EPI)NonAf Random Glucose Calcium Total Bilirubin Direct Bilirubin 0.5 H AST ALT Alkaline Phosphatase C-Reactive Protein 9.0 H Total Protein Albumin Triglycerides Cholesterol Total LDL Cholesterol HDL Cholesterol Total Amylase Lipase Hepatitis Be Antigen Active Medications Generic Name Dose Route Start Last Admin Trade Name Freq PRN Reason Stop Dose Admin Piperacillin Sod/Tazobactam 50 mls @ 100 mls/hr 11/25/19 18:00 11/26/19 11:01 Sod 3.375 gm/ Dextrose IVPB 100 mls/hr Q8H-IV CARMEN Administration Protocol Lactated Ringer's 1,000 ml in 1,000 mls @ 125 mls/hr 11/26/19 06:30 11/26/19 07:02 Lactated Ringers Solution IV 11/26/19 14:29 125 mls/hr ASDIR CARMEN Administration Potassium Chloride 20 meq/ 1,010 mls @ 125 mls/hr 11/26/19 09:30 11/26/19 12:09 Dextrose IVPB 125 mls/hr Q8H CARMEN Administration Morphine Sulfate 0.5 mg 11/25/19 04:33 Morphine Sulfate IVPUSH Q4H PRN PAIN LEVEL 6-10 Ondansetron HCl 4 mg 11/25/19 04:03 Zofran Injection IVPUSH Q6H PRN NAUSEA AND/OR VOMITING ASSESSMENT/PLAN: This is a 89 y/o female with a PMHx of HTN, HLD, Diverticulitis presenting with abdominal pain x3 days. Admitted for Acute Pancreatitis, Acute Cholecystitis, Transaminitis. #Acute Pancreatitis -Lipase level at admission was 9685 -LR fluids -Zofran PRN #Acute Cholecystitis -CT scan: mild extrahepatic and intrahepatic billary tract dilation; gallbladder overdistention. MRI/MRCP recommended -Gallbladder US: gallbladder over-distention, mild diffuse wall thickening suggestive of acute cholecystitis. CBD dilatation 1.1cm -MRCP: no gross CBD stone. + pericholecystic fluid. -ERCP deferred as per Dr. Austin (GI) -Patient to continue Zosyn as per Dr. Castorena (ID) -Start clear liquid diet as per Dr. Stern (GI) -General surgery would like to hold off on cholecystectomy for now as per Dr. Dawn #Transaminitis -Likely secondary to Common Bile Duct dilatation -Hepatitis panel ordered- results still pending -today's LFTs are downtrending -continue to monitor LFTs #Hypertension -HTN medications are being held for now #Hyperlipidemia -Hold Statins for now due to elevated liver enzymes #FEN -LR @ 125 mls/hr -monitor electrolytes -clear liquid diet #Prophylaxis - Heparin SQ #Dispo - Monitor in M/S Visit type - Emergency Visit Emergency Visit: No - New Patient This patient is new to me today: No - Critical Care Critical Care patient: No - Discharge Referral Referred to [facility] No - Medication Review Med list reviewed for High Risk Meds patients 65 and older: Yes ATTENDING PHYSICIAN STATEMENT I saw and evaluated the patient. I reviewed the resident's note and discussed the case with the resident. I agree with the resident's findings and plan as documented. SUBJECTIVE: OBJECTIVE: ASSESSMENT AND PLAN:
[2019-11-26] MEDS ORDERED: MULTIVIT-MINERALS ORAL LIQUID PO SCH (14:30)
[2019-11-26] MEDS ORDERED: AMINO ACIDS/PROTEIN HYDROLYS 30 ML LIQUID.PKT PO SCH (17:30)
--- NOTE | 2019-11-26 18:58 | PN ---
Teaching Attending Note Name of Resident: Chapin Ibrahim ATTENDING PHYSICIAN STATEMENT I saw and evaluated the patient. I reviewed the resident's note and discussed the case with the resident. I agree with the resident's findings and plan as documented. SUBJECTIVE: c/o having abdominal pain OBJECTIVE: Vital Signs Temperature 98.7 F 11/26/19 14:00 Pulse Rate 78 11/26/19 14:00 Respiratory Rate 20 11/26/19 14:00 Blood Pressure 152/75 11/26/19 14:00 O2 Sat by Pulse Oximetry (%) 95 11/26/19 14:00 PE;per resident's note CBCD WBC 5.6 K/mm3 (4.0-10.0) 11/26/19 07:44 RBC 3.78 M/mm3 (3.60-5.2) 11/26/19 07:44 Hgb 11.8 GM/dL (10.7-15.3) 11/26/19 07:44 Hct 34.9 % (32.4-45.2) 11/26/19 07:44 MCV 92.3 fl (80-96) 11/26/19 07:44 MCHC 33.8 g/dl (32.0-36.0) 11/26/19 07:44 RDW 13.5 % (11.6-15.6) 11/26/19 07:44 Plt Count 102 K/MM3 (134-434) L 11/26/19 07:44 MPV 8.1 fl (7.5-11.1) 11/26/19 07:44 CMP Sodium 138 mmol/L (136-145) 11/26/19 07:44 Potassium 3.4 mmol/L (3.5-5.1) L 11/26/19 07:44 Chloride 104 mmol/L (98-107) 11/26/19 07:44 Carbon Dioxide 24 mmol/L (21-32) 11/26/19 07:44 Anion Gap 9 MMOL/L (8-16) 11/26/19 07:44 BUN 13.7 mg/dL (7-18) 11/26/19 07:44 Creatinine 0.5 mg/dL (0.55-1.3) L 11/26/19 07:44 Random Glucose 62 mg/dL (74-106) L 11/26/19 07:44 Calcium 8.4 mg/dL (8.5-10.1) L 11/26/19 07:44 Total Bilirubin 1.3 mg/dL (0.2-1) H 11/26/19 07:44 AST 91 U/L (15-37) H 11/26/19 07:44 ALT 148 U/L (13-61) H 11/26/19 07:44 Alkaline Phosphatase 243 U/L (45-117) H 11/26/19 07:44 Total Protein 5.9 g/dl (6.4-8.2) L 11/26/19 07:44 Albumin 3.0 g/dl (3.4-5.0) L 11/26/19 07:44 Current Medications Generic Name Dose Route Start Last Admin Trade Name Freq PRN Reason Stop Dose Admin Piperacillin Sod/Tazobactam 50 mls @ 100 mls/hr 11/25/19 18:00 11/26/19 18:32 Sod 3.375 gm/ Dextrose IVPB 100 mls/hr Q8H-IV CARMEN Administration Protocol Potassium Chloride 20 meq/ 1,010 mls @ 125 mls/hr 11/26/19 09:30 11/26/19 18:42 Dextrose IVPB Not Given Q8H CARMEN Morphine Sulfate 0.5 mg 11/25/19 04:33 Morphine Sulfate IVPUSH Q4H PRN PAIN LEVEL 6-10 Ondansetron HCl 4 mg 11/25/19 04:03 Zofran Injection IVPUSH Q6H PRN NAUSEA AND/OR VOMITING Home Medications Medication Instructions Recorded Clopidogrel Bisulfate [Plavix -] 75 mg PO ASDIR 05/03/14 Losartan Potassium 100 mg PO DAILY 05/18/15 Famotidine 20 mg DAILY 11/25/19 Microbiology 11/25/19 01:07 Urine - Urine Clean Catch Urine Culture - Final NO GROWTH OBTAINED 11/25/19 01:07 Blood - Peripheral Venous Blood Culture - Preliminary NO GROWTH OBTAINED AFTER 24 HOURS, INCUBATION TO CONTINUE FOR 4 DAYS. 11/25/19 01:07 Blood - Peripheral Venous Blood Culture - Preliminary NO GROWTH OBTAINED AFTER 24 HOURS, INCUBATION TO CONTINUE FOR [address] scan: mild extrahepatic and intrahepatic billary tract dilation; gallbladder overdistention. MRI/MRCP recommended -Gallbladder US: gallbladder over-distention, mild diffuse wall thickening suggestive of acute cholecystitis. CBD dilatation 1.1cm -MRCP: no gross CBD stone. + pericholecystic fluid. ASSESSMENT AND PLAN: This patient is an 89yof with a PMHx of HTN, HLD, Diverticulitis presented to ED with abdominal pain x3 days. and was found to have Acute Pancreatitis/ Cholecystitis. #Acute Pancreatitis with lipase level of 9k; IVF GI consult appreciated, NPo for now #Acute Cholecystitis: CT/US result as above continue IV antibiotc, sx and GI on the case #Acute Transaminitis: trend #Hypertension: continue to monitor #Hyperlipidemia: Hold Statins due to elevated liver enzymes DVT Px:Heparin SQ
[2019-11-26] MEDS ORDERED: BANATROL PLUS POWDER PACKET PO SCH (22:00)
[2019-11-26] MEDS ORDERED: LACTOBACILLUS ACIDOPHILUS 1 TABLET PO SCH (22:00)
[2019-11-26 23:08] LABS: HEP B CORE AB, TOT Negative (Negative)
[2019-11-27] MEDS ORDERED: PIPERACILLIN/TAZOBACTAM 3.375 GM VIAL IVPB ONE ×3 (02:19→16:55)
[2019-11-27] MEDS ORDERED: DEXTROSE 5%-WATER - 50 ML IVPB ONE ×3 (02:20→16:56)
[2019-11-27] MEDS: PIPERACILLIN/TAZOB 3.375 GM 3.375 GM in DEXTROSE 5%-WATER - 50 ML IVPB SCH ×3 (02:23→17:27)
[2019-11-27] MEDS: POTASSIUM CHLORIDE 20 MEQ in DEXTROSE 5%-WATER - 1,000 ML IVPB SCH ×3 (08:10→17:27)
[2019-11-27 09:16] LABS: BASO % 0.5 % (0-2.0); EOS % 2.5 % (0-4.5); HEMATOCRIT 36.4 % (32.4-45.2); HEMOGLOBIN 12.6 GM/dL (10.7-15.3); LYMPH % 12.5 % (8-40); MCH 31.7 pg (25.7-33.7); MCHC 34.6 g/dl (32.0-36.0); MEAN CELL VOLUME 91.8 fl (80-96); MEAN PLT VOLUME 8.1 fl (7.5-11.1); MONO % 7.8 % (3.8-10.2); NEUT % 76.7 % (42.8-82.8); PLATELET COUNT 105 K/MM3 (134-434); RBC 3.96 M/mm3 (3.60-5.2); RDW 13.1 % (11.6-15.6); WHITE BLOOD COUNT 4.5 K/mm3 (4.0-10.0)
[2019-11-27 09:47] LABS: BILIRUBIN,DIRECT 0.3 mg/dL (0.0-0.2); BILIRUBIN,TOTAL 0.7 mg/dL (0.2-1); BLOOD UREA NITROGEN 5.4 mg/dL (7-18); CREATININE 0.5 mg/dL (0.55-1.3); POTASSIUM 3.8 mmol/L (3.5-5.1); TOT PROT 6.1 g/dl (6.4-8.2)
[2019-11-27 09:53] LABS: CALCIUM 8.5 mg/dL (8.5-10.1)
--- NOTE | 2019-11-27 10:53 | PN ---
Progress Note (short form) - Note Progress Note: Attending Surgeon Seen in f/u; no c/o tolerating clear liquid diet VSS AF abdo-soft; flat and non tender lipase and LFT's normalizing; MRCP reviewed. IMP: s/p gallstone pancreatitis PLAN: Suggest advance diet as tolerated and continue to trend bili and LFT's and lipase; will make final decision re lap oscar prior to OR at 10 AM 11/29/2019; d/w the patients daughter Naomi. Damir Vo MD FACS
--- NOTE | 2019-11-27 15:58 | PN ---
Progress Note, Physician History of Present Illness: Pt is alert. Reports less abd pain. No n/v. Afebrile. - Current Medication List Current Medications: Active Medications Piperacillin Sod/Tazobactam (Sod 3.375 gm/ Dextrose) 50 mls @ 100 mls/hr IVPB Q8H-IV CARMEN; Protocol Last Admin: 11/27/19 09:57 Dose: 100 mls/hr Documented by: Potassium Chloride 20 meq/ (Dextrose) 1,010 mls @ 125 mls/hr IVPB Q8H CARMEN Last Admin: 11/27/19 15:43 Dose: Not Given Documented by: Morphine Sulfate (Morphine Sulfate) 0.5 mg IVPUSH Q4H PRN PRN Reason: PAIN LEVEL 6-10 Ondansetron HCl (Zofran Injection) 4 mg IVPUSH Q6H PRN PRN Reason: NAUSEA AND/OR VOMITING - Objective Vital Signs: Vital Signs Temperature 98.6 F 11/27/19 06:02 Pulse Rate 79 11/27/19 10:00 Respiratory Rate 18 11/27/19 10:00 Blood Pressure 135/47 L 11/27/19 10:00 O2 Sat by Pulse Oximetry (%) 95 11/27/19 06:02 Constitutional: Yes: No Distress, Calm Eyes: Yes: Conjunctiva Clear Cardiovascular: Yes: Regular Rate and Rhythm Respiratory: Yes: Regular Gastrointestinal: Yes: Normal Bowel Sounds, Soft Genitourinary: Yes: WNL Edema: No Integumentary: Yes: WNL Neurological: Yes: Alert Labs: CBC, BMP 11/27/19 07:54 11/27/19 07:54 INR, PTT INR 1.13 (0.83-1.09) H 11/26/19 07:44 Laboratory Last Values WBC 4.5 K/mm3 (4.0-10.0) 11/27/19 07:54 RBC 3.96 M/mm3 (3.60-5.2) 11/27/19 07:54 Hgb 12.6 GM/dL (10.7-15.3) 11/27/19 07:54 Hct 36.4 % (32.4-45.2) 11/27/19 07:54 MCV 91.8 fl (80-96) 11/27/19 07:54 MCH 31.7 pg (25.7-33.7) 11/27/19 07:54 MCHC 34.6 g/dl (32.0-36.0) 11/27/19 07:54 RDW 13.1 % (11.6-15.6) 11/27/19 07:54 Plt Count 105 K/MM3 (134-434) L 11/27/19 07:54 MPV 8.1 fl (7.5-11.1) 11/27/19 07:54 Absolute Neuts (auto) 3.4 K/mm3 (1.5-8.0) 11/27/19 07:54 Neutrophils % 76.7 % (42.8-82.8) 11/27/19 07:54 Lymphocytes % 12.5 % (8-40) D 11/27/19 07:54 Monocytes % 7.8 % (3.8-10.2) 11/27/19 07:54 Eosinophils % 2.5 % (0-4.5) D 11/27/19 07:54 Basophils % 0.5 % (0-2.0) 11/27/19 07:54 Nucleated RBC % 0 % (0-0) 11/27/19 07:54 PT with INR 13.40 SEC (9.7-13.0) H 11/26/19 07:44 INR 1.13 (0.83-1.09) H 11/26/19 07:44 PTT (Actin FS) 37.7 SECONDS (25.2-36.5) H 11/26/19 07:44 Sodium 138 mmol/L (136-145) 11/27/19 07:54 Potassium 3.8 mmol/L (3.5-5.1) 11/27/19 07:54 Chloride 104 mmol/L (98-107) 11/27/19 07:54 Carbon Dioxide 27 mmol/L (21-32) 11/27/19 07:54 Anion Gap 7 MMOL/L (8-16) L 11/27/19 07:54 BUN 5.4 mg/dL (7-18) L 11/27/19 07:54 Creatinine 0.5 mg/dL (0.55-1.3) L 11/27/19 07:54 Est GFR (CKD-EPI)AfAm 99.45 11/27/19 07:54 Est GFR (CKD-EPI)NonAf 85.81 11/27/19 07:54 Random Glucose 139 mg/dL (74-106) H 11/27/19 07:54 Lactic Acid 1.4 mmol/L (0.4-2.0) 11/24/19 19:11 Calcium 8.5 mg/dL (8.5-10.1) 11/27/19 07:54 Iron 12 ug/dL (50-175) L 11/25/19 07:20 TIBC 224 ug/dL (250-450) L 11/25/19 07:20 Iron Saturation 5 % (17.5-39) L 11/25/19 07:20 Unsaturated IBC 212 ug/dL (200-275) 11/25/19 07:20 Total Bilirubin 0.7 mg/dL (0.2-1) 11/27/19 07:54 Direct Bilirubin 0.3 mg/dL (0.0-0.2) H 11/27/19 07:54 AST 46 U/L (15-37) H 11/27/19 07:54 ALT 111 U/L (13-61) H 11/27/19 07:54 Alkaline Phosphatase 242 U/L (45-117) H 11/27/19 07:54 C-Reactive Protein 9.0 MG/DL (0.00-0.3) H 11/26/19 07:44 Total Protein 6.1 g/dl (6.4-8.2) L 11/27/19 07:54 Albumin 3.0 g/dl (3.4-5.0) L 11/27/19 07:54 Triglycerides 76 mg/dL (0-150) 11/26/19 07:44 Cholesterol 165 mg/dL (50-200) 11/26/19 07:44 Total LDL Cholesterol 73 mg/dL (5-100) 11/26/19 07:44 HDL Cholesterol 70 mg/dL (40-60) H 11/26/19 07:44 Total Amylase 73 U/L (25-115) 11/26/19 07:44 Lipase 895 U/L (73-393) H 11/26/19 07:44 Urine Color Yellow 11/24/19 01:07 Urine Appearance Clear 11/24/19 01:07 Urine pH 7.0 (4.5-8) 11/24/19 01:07 Urine Protein Trace (NEGATIVE) 11/24/19 01:07 Urine Glucose (UA) Negative (NEGATIVE) 11/24/19 01:07 Urine Ketones Negative (NEGATIVE) 11/24/19 01:07 Urine Blood Trace-intact (NEGATIVE) 11/24/19 01:07 Urine Nitrite Negative (NEGATIVE) 11/24/19 01:07 Urine Bilirubin Negative (NEGATIVE) 11/24/19 01:07 Urine Urobilinogen 4.0 e.u/dl (0.2-1.0) H 11/24/19 01:07 Ur Leukocyte Esterase Negative (NEGATIVE) 11/24/19 01:07 Urine RBC 2-5 /hpf (0-4) 11/24/19 01:07 Urine WBC 0-2 (NEGATIVE) 11/24/19 01:07 Ur Transition Epith Cell Few /hpf 11/24/19 01:07 COVID-19 (FINN) Not detected (Not Detected) 11/25/19 01:07 Hep A IgM Ab Confirm Negative (Negative) 11/25/19 07:20 Hepatitis A Ab Total Negative (Negative) 11/25/19 07:20 Hep Bs Antigen Negative (Negative) 11/25/19 07:20 Hep Bs Antibody Non reactive (.) 11/25/19 07:20 Hep B Core Total Ab Negative (Negative) 11/25/19 07:20 Hep B Core IgM Ab Negative (Negative) 11/25/19 07:20 Hepatitis Be Antibody Negative (Negative) 11/25/19 07:20 Hepatitis Be Antigen Negative (Negative) 11/25/19 07:20 Hepatitis Be Antigen Negative (Negative) 11/25/19 07:20 Blood Type B POSITIVE 11/24/19 19:12 Antibody Screen Positive 11/24/19 19:11 Antibody Identification Cold antibody 11/24/19 19:11 Antigen Identification No Result Required. 11/24/19 19:11 Microbiology 11/25/19 01:07 Blood - Peripheral Venous Blood Culture - Preliminary NO GROWTH OBTAINED AFTER 48 HOURS, INCUBATION TO CONTINUE FOR 3 DAYS. 11/25/19 01:07 Blood - Peripheral Venous Blood Culture - Preliminary NO GROWTH OBTAINED AFTER 48 HOURS, INCUBATION TO CONTINUE FOR 3 DAYS. 11/25/19 01:07 Urine - Urine Clean Catch Urine Culture - Final NO GROWTH OBTAINED - ....Imaging Cat Scan: Report Reviewed MRI: Report Reviewed Problem List - Problems (1) Acute pancreatitis Code(s): K85.90 - ACUTE PANCREATITIS WITHOUT NECROSIS OR INFECTION, UNSP Qualifiers: Pancreatitis type: biliary Acute pancreatitis complication: no infection or necrosis Qualified Code(s): K85.10 - Biliary acute pancreatitis without necrosis or infection (2) Cholecystitis, acute Code(s): K81.0 - ACUTE CHOLECYSTITIS (3) Transaminitis Code(s): R74.0 - NONSPEC ELEV OF LEVELS OF TRANSAMNS & LACTIC ACID DEHYDRGNSE (4) HTN (hypertension) Code(s): I10 - ESSENTIAL (PRIMARY) HYPERTENSION Qualifiers: Hypertension type: unspecified Qualified Code(s): I10 - Essential (primary) hypertension (5) Hyperlipidemia Code(s): E78.5 - HYPERLIPIDEMIA, UNSPECIFIED (6) TIA (transient ischemic attack) Code(s): G45.9 - TRANSIENT CEREBRAL ISCHEMIC ATTACK, UNSPECIFIED Assessment/Plan Gallstone Pancreatitis Pt with improvement of abd pain, LFTs/Lipase trending down MRI results noted continue Zosyn for now Surgery following continue monitor
--- NOTE | 2019-11-27 18:51 | PN ---
Progress Note (short form) - Note Progress Note: Patient has no pain today, feels much better. Vital Signs Temperature 98.6 F 11/27/19 06:02 Pulse Rate 79 11/27/19 10:00 Respiratory Rate 18 11/27/19 10:00 Blood Pressure 135/47 L 11/27/19 10:00 O2 Sat by Pulse Oximetry (%) 95 11/27/19 06:02 GENERAL: The patient is awake, alert, and fully oriented, in no acute distress. HEAD: Normal with no signs of trauma. EYES: PERRL, extraocular movements intact, sclera anicteric, conjunctiva clear. ENT: Ears normal, nares patent, oropharynx clear without exudates, moist mucous membranes. NECK: Trachea midline, full range of motion, supple. LUNGS: Breath sounds equal, clear to auscultation bilaterally, no wheezes, no crackles, no accessory muscle use. HEART: Regular rate and rhythm, S1, S2 +, GHISLAINE 2/6 no rub or gallop. ABDOMEN: Soft, NT,ND, normoactive bowel sounds, no guarding, no rebound, no hepatosplenomegaly, no masses. EXTREMITIES: 2+ pulses, warm, well-perfused, no edema. NEUROLOGICAL: Cranial nerves II through XII grossly intact. Normal speech, gait not observed. PSYCH: Normal mood, normal affect. SKIN: Warm, dry, normal turgor, no rashes or lesions noted CBCD WBC 4.5 K/mm3 (4.0-10.0) 11/27/19 07:54 RBC 3.96 M/mm3 (3.60-5.2) 11/27/19 07:54 Hgb 12.6 GM/dL (10.7-15.3) 11/27/19 07:54 Hct 36.4 % (32.4-45.2) 11/27/19 07:54 MCV 91.8 fl (80-96) 11/27/19 07:54 MCHC 34.6 g/dl (32.0-36.0) 11/27/19 07:54 RDW 13.1 % (11.6-15.6) 11/27/19 07:54 Plt Count 105 K/MM3 (134-434) L 11/27/19 07:54 MPV 8.1 fl (7.5-11.1) 11/27/19 07:54 CMP Sodium 138 mmol/L (136-145) 11/27/19 07:54 Potassium 3.8 mmol/L (3.5-5.1) 11/27/19 07:54 Chloride 104 mmol/L (98-107) 11/27/19 07:54 Carbon Dioxide 27 mmol/L (21-32) 11/27/19 07:54 Anion Gap 7 MMOL/L (8-16) L 11/27/19 07:54 BUN 5.4 mg/dL (7-18) L 11/27/19 07:54 Creatinine 0.5 mg/dL (0.55-1.3) L 11/27/19 07:54 Random Glucose 139 mg/dL (74-106) H 11/27/19 07:54 Calcium 8.5 mg/dL (8.5-10.1) 11/27/19 07:54 Total Bilirubin 0.7 mg/dL (0.2-1) 11/27/19 07:54 AST 46 U/L (15-37) H 11/27/19 07:54 ALT 111 U/L (13-61) H 11/27/19 07:54 Alkaline Phosphatase 242 U/L (45-117) H 11/27/19 07:54 Total Protein 6.1 g/dl (6.4-8.2) L 11/27/19 07:54 Albumin 3.0 g/dl (3.4-5.0) L 11/27/19 07:54 Current Medications Generic Name Dose Route Start Last Admin Trade Name Freq PRN Reason Stop Dose Admin Piperacillin Sod/Tazobactam 50 mls @ 100 mls/hr 11/25/19 18:00 11/27/19 17:27 Sod 3.375 gm/ Dextrose IVPB 100 mls/hr Q8H-IV CARMEN Administration Protocol Potassium Chloride 20 meq/ 1,010 mls @ 125 mls/hr 11/26/19 09:30 11/27/19 17:27 Dextrose IVPB 125 mls/hr Q8H CARMEN Administration Morphine Sulfate 0.5 mg 11/25/19 04:33 Morphine Sulfate IVPUSH Q4H PRN PAIN LEVEL 6-10 Ondansetron HCl 4 mg 11/25/19 04:03 Zofran Injection IVPUSH Q6H PRN NAUSEA AND/OR VOMITING Home Medications Medication Instructions Recorded Clopidogrel Bisulfate [Plavix -] 75 mg PO ASDIR 05/03/14 Losartan Potassium 100 mg PO DAILY 05/18/15 Famotidine 20 mg DAILY 11/25/19 Microbiology 11/25/19 01:07 Blood - Peripheral Venous Blood Culture - Preliminary NO GROWTH OBTAINED AFTER 48 HOURS, INCUBATION TO CONTINUE FOR 3 DAYS. 11/25/19 01:07 Blood - Peripheral Venous Blood Culture - Preliminary NO GROWTH OBTAINED AFTER 48 HOURS, INCUBATION TO CONTINUE FOR 3 DAYS. 11/25/19 01:07 Urine - Urine Clean Catch Urine Culture - Final NO GROWTH OBTAINED CT scan: mild extrahepatic and intrahepatic billary tract dilation; gallbladder overdistention. MRI/MRCP recommended -Gallbladder US: gallbladder over-distention, mild diffuse wall thickening suggestive of acute cholecystitis. CBD dilatation 1.1cm -MRCP: no gross CBD stone. + pericholecystic fluid. ASSESSMENT AND PLAN: This patient is an 89yof with a PMHx of HTN, HLD, Diverticulitis presented to ED with abdominal pain x3 days. and was found to have Acute Pancreatitis/ Cholecystitis. #Acute Gallstone Pancreatitis: with elevated lipase level of 9k; will monitor , IVF GI consult appreciated, clears , tolerating well #Acute Cholecystitis: CT/US result as above continue IV antibiotc, sx and GI on the case #Acute Transaminitis: trend #Hypertension: continue to monitor #Hyperlipidemia: Hold Statins due to elevated liver enzymes DVT Px:Heparin SQ Visit type - Emergency Visit Emergency Visit: Yes ED Registration Date: 11/25/19 Care time: The patient presented to the Emergency Department on the above date and was hospitalized for further evaluation of their emergent condition. - New Patient This patient is new to me today: No - Critical Care Critical Care patient: No - Discharge Referral Referred to [facility] Med [facility] No - Medication Review Med list reviewed for High Risk Meds patients 65 and older: Yes
--- NOTE | 2019-11-27 21:47 | PN.GI ---
GI Progress Note Subjective: abdominal pain resolved, LFTs downward trend - Objective Vital Signs: Vital Signs Temperature 98.6 F 11/27/19 06:02 Pulse Rate 79 11/27/19 10:00 Respiratory Rate 18 11/27/19 10:00 Blood Pressure 135/47 L 11/27/19 10:00 O2 Sat by Pulse Oximetry (%) 95 11/27/19 06:02 Constitutional: No Distress Eyes: Yes: Conjunctiva Clear Neck: Yes: Trachea Midline Cardiovascular: Yes: Regular Rate and Rhythm Respiratory: Yes: CTA Bilaterally ...Palpate: Yes: Soft. No: Firm/Rigid, Guarding, Hepatomegaly, Mass, Pulsatile Mass, Splenomegaly, Tenderness Labs: CBC, BMP 11/27/19 07:54 11/27/19 07:54 INR, PTT INR 1.13 (0.83-1.09) H 11/26/19 07:44 CBC,CMP WBC 4.5 K/mm3 (4.0-10.0) 11/27/19 07:54 RBC 3.96 M/mm3 (3.60-5.2) 11/27/19 07:54 Hgb 12.6 GM/dL (10.7-15.3) 11/27/19 07:54 Hct 36.4 % (32.4-45.2) 11/27/19 07:54 MCV 91.8 fl (80-96) 11/27/19 07:54 MCH 31.7 pg (25.7-33.7) 11/27/19 07:54 MCHC 34.6 g/dl (32.0-36.0) 11/27/19 07:54 RDW 13.1 % (11.6-15.6) 11/27/19 07:54 Plt Count 105 K/MM3 (134-434) L 11/27/19 07:54 MPV 8.1 fl (7.5-11.1) 11/27/19 07:54 Absolute Neuts (auto) 3.4 K/mm3 (1.5-8.0) 11/27/19 07:54 Neutrophils % 76.7 % (42.8-82.8) 11/27/19 07:54 Lymphocytes % 12.5 % (8-40) D 11/27/19 07:54 Monocytes % 7.8 % (3.8-10.2) 11/27/19 07:54 Eosinophils % 2.5 % (0-4.5) D 11/27/19 07:54 Basophils % 0.5 % (0-2.0) 11/27/19 07:54 Nucleated RBC % 0 % (0-0) 11/27/19 07:54 Sodium 138 mmol/L (136-145) 11/27/19 07:54 Potassium 3.8 mmol/L (3.5-5.1) 11/27/19 07:54 Chloride 104 mmol/L (98-107) 11/27/19 07:54 Carbon Dioxide 27 mmol/L (21-32) 11/27/19 07:54 Anion Gap 7 MMOL/L (8-16) L 11/27/19 07:54 BUN 5.4 mg/dL (7-18) L 11/27/19 07:54 Creatinine 0.5 mg/dL (0.55-1.3) L 11/27/19 07:54 Est GFR (CKD-EPI)AfAm 99.45 11/27/19 07:54 Est GFR (CKD-EPI)NonAf 85.81 11/27/19 07:54 Random Glucose 139 mg/dL (74-106) H 11/27/19 07:54 Lactic Acid 1.4 mmol/L (0.4-2.0) 11/24/19 19:11 Calcium 8.5 mg/dL (8.5-10.1) 11/27/19 07:54 Iron 12 ug/dL (50-175) L 11/25/19 07:20 TIBC 224 ug/dL (250-450) L 11/25/19 07:20 Iron Saturation 5 % (17.5-39) L 11/25/19 07:20 Unsaturated IBC 212 ug/dL (200-275) 11/25/19 07:20 Total Bilirubin 0.7 mg/dL (0.2-1) 11/27/19 07:54 Direct Bilirubin 0.3 mg/dL (0.0-0.2) H 11/27/19 07:54 AST 46 U/L (15-37) H 11/27/19 07:54 ALT 111 U/L (13-61) H 11/27/19 07:54 Alkaline Phosphatase 242 U/L (45-117) H 11/27/19 07:54 C-Reactive Protein 9.0 MG/DL (0.00-0.3) H 11/26/19 07:44 Total Protein 6.1 g/dl (6.4-8.2) L 11/27/19 07:54 Albumin 3.0 g/dl (3.4-5.0) L 11/27/19 07:54 Triglycerides 76 mg/dL (0-150) 11/26/19 07:44 Cholesterol 165 mg/dL (50-200) 11/26/19 07:44 Total LDL Cholesterol 73 mg/dL (5-100) 11/26/19 07:44 HDL Cholesterol 70 mg/dL (40-60) H 11/26/19 07:44 Total Amylase 73 U/L (25-115) 11/26/19 07:44 Lipase 895 U/L (73-393) H 11/26/19 07:44 Problem List - Problems (1) Biliary acute pancreatitis Assessment/Plan: resolving MRCP normal CBD possibly passed a stone R> advance diet in am low fat low sodium Code(s): K85.10 - BILIARY ACUTE PANCREATITIS WITHOUT NECROSIS OR INFECTION
[2019-11-28] MEDS ORDERED: PIPERACILLIN/TAZOBACTAM 3.375 GM VIAL IVPB ONE ×3 (00:23→16:53)
[2019-11-28] MEDS ORDERED: DEXTROSE 5%-WATER - 50 ML IVPB ONE ×3 (00:23→16:53)
[2019-11-28] MEDS: PIPERACILLIN/TAZOB 3.375 GM 3.375 GM in DEXTROSE 5%-WATER - 50 ML IVPB SCH ×3 (01:28→17:25)
[2019-11-28] MEDS: POTASSIUM CHLORIDE 20 MEQ in DEXTROSE 5%-WATER - 1,000 ML IVPB SCH ×2 (01:28→11:00)
[2019-11-28 08:47] LABS: BASO % 0.8 % (0-2.0); EOS % 4.1 % (0-4.5); HEMATOCRIT 37.2 % (32.4-45.2); HEMOGLOBIN 13.1 GM/dL (10.7-15.3); LYMPH % 19.7 % (8-40); MCH 31.9 pg (25.7-33.7); MCHC 35.1 g/dl (32.0-36.0); MEAN CELL VOLUME 91.1 fl (80-96); MEAN PLT VOLUME 8.1 fl (7.5-11.1); MONO % 12.6 % (3.8-10.2); NEUT % 62.8 % (42.8-82.8); PLATELET COUNT 109 K/MM3 (134-434); RBC 4.09 M/mm3 (3.60-5.2); RDW 13.2 % (11.6-15.6); WHITE BLOOD COUNT 3.1 K/mm3 (4.0-10.0)
[2019-11-28 09:13] LABS: BILIRUBIN,TOTAL 0.7 mg/dL (0.2-1); CALCIUM 8.4 mg/dL (8.5-10.1); CREATININE 0.6 mg/dL (0.55-1.3); MAGNESIUM 2.2 mg/dL (1.8-2.4); PHOSPHOROUS 3.7 mg/dL (2.5-4.9); POTASSIUM 4.2 mmol/L (3.5-5.1); TOT PROT 6.1 g/dl (6.4-8.2)
--- NOTE | 2019-11-28 12:27 | PN ---
Progress Note (short form) - Note Progress Note: Attending Surgeon Seen in f/u; no c/o; tolerating diet. VSS AF abdo-soft and non tender lipase and LFT's decreasing h/e alk phos remains marginally elevated. IMp: resolving gallstone pancreatitis ?? w/o evidence of residual stones in her GB on imaging. PLAN: D/w the patient lap oscar possible open and r/b/t/and alternatives to surgery; she is not sure at this time about consenting to surgery; she is a [employer] and given her advanced age she might be best managed conservatively; I discussed this w/her daughter by telephone as well 11/27/2019. Damir Vo MD FACS
--- NOTE | 2019-11-28 14:55 | PN ---
Physical Exam: SUBJECTIVE: Patient seen and examined. No complaints today. Tolerating diet well. OBJECTIVE: Vital Signs Period Temp Pulse Resp BP Sys/[place] Pulse Ox Last 24 Hr 97.9 F-98.6 F 66-77 18-20 128-145/58-77 96-98 GENERAL: A&Ox3, in no acute distress. HEAD: Normal with no signs of trauma. EYES: PERRL, EOMI. ENT: Ears normal, nares patent, moist mucous membranes. NECK: Trachea midline, full range of motion. LUNGS: CTAB, no wheezes or crackles. HEART: RRR, no murmur appreciated. ABDOMEN: Soft, nontender, nondistended, normoactive bowel sounds. EXTREMITIES: 2+ pulses, warm, well-perfused, no edema. NEUROLOGICAL: Cranial nerves II through XII grossly intact. Normal speech. PSYCH: Normal mood, normal affect. SKIN: Warm, dry, normal turgor. Laboratory Results - last 24 hr 11/28/19 11/28/19 07:26 07:26 WBC 3.1 L RBC 4.09 Hgb 13.1 Hct 37.2 MCV 91.1 MCH 31.9 MCHC 35.1 RDW 13.2 Plt Count 109 L MPV 8.1 Absolute Neuts (auto) 2.0 Neutrophils % 62.8 Lymphocytes % 19.7 D Monocytes % 12.6 H Eosinophils % 4.1 Basophils % 0.8 Nucleated RBC % 0 Sodium 139 Potassium 4.2 Chloride 105 Carbon Dioxide 29 Anion Gap 5 L BUN 4.0 L Creatinine 0.6 Est GFR (CKD-EPI)AfAm 93.66 Est GFR (CKD-EPI)NonAf 80.81 Random Glucose 148 H Calcium 8.4 L Phosphorus 3.7 Magnesium 2.2 Total Bilirubin 0.7 AST 30 ALT 88 H Alkaline Phosphatase 233 H Total Protein 6.1 L Albumin 3.0 L Lipase 452 H Active Medications Generic Name Dose Route Start Last Admin Trade Name Freq PRN Reason Stop Dose Admin Piperacillin Sod/Tazobactam 50 mls @ 100 mls/hr 11/25/19 18:00 11/28/19 09:32 Sod 3.375 gm/ Dextrose IVPB 100 mls/hr Q8H-IV CARMEN Administration Protocol Potassium Chloride 20 meq/ 1,010 mls @ 125 mls/hr 11/26/19 09:30 11/28/19 11:00 Dextrose IVPB 125 mls/hr Q8H CARMEN Administration Ondansetron HCl 4 mg 11/25/19 04:03 Zofran Injection IVPUSH Q6H PRN NAUSEA AND/OR VOMITING ASSESSMENT/PLAN: Pt is an 89 y/o female with HTN, HLD, Diverticulitis presenting with abdominal pain x3 days. Admitted for Acute Pancreatitis, Acute Cholecystitis, Transaminitis. #acute pancreatitis, improved -tolerating diet -lipase 9600-->450 -consider d/c'ing fluids if continues to improve #acute cholecystitis, improved -MRCP: no gross CBD stone. + pericholecystic fluid. -Zosyn 11/24 -surgery following- Dr. Vo spoke with pt who is unsure about surgery at this time, she is [employer], may consider conservative management at this time -GI following -ID following #Transaminitis, improving likely 2/2 CBD stone/dilatation -possibly passed stone -all downtrending, AST in normal range today -hepatitis panel negative -hepatic panels pending #HTN -hold meds #HLD -hold statin for transaminitis DVT Ppx heparin FEN D5W with 20meq KCl @ 125mL/hr monitor liver enzymes sodium-controlled diet Dispo med/surg pt to decide on conservative management vs surgery Visit type - Emergency Visit Emergency Visit: Yes ED Registration Date: 11/25/19 Care time: The patient presented to the Emergency Department on the above date and was hospitalized for further evaluation of their emergent condition. - New Patient This patient is new to me today: Yes Date on this admission: 11/28/19 - Critical Care Critical Care patient: No - Medication Review Med list reviewed for High Risk Meds patients 65 and older: Yes ATTENDING PHYSICIAN STATEMENT I saw and evaluated the patient. I reviewed the resident's note and discussed the case with the resident. I agree with the resident's findings and plan as documented. SUBJECTIVE: OBJECTIVE: ASSESSMENT AND PLAN:
--- NOTE | 2019-11-28 16:45 | PN ---
Teaching Attending Note Name of Resident: Clau Sotelo ATTENDING PHYSICIAN STATEMENT I saw and evaluated the patient. I reviewed the resident's note and discussed the case with the resident. I agree with the resident's findings and plan as documented. SUBJECTIVE: Patient is comfortable with NAD, feels better no further abdominal pain, not sure whether she would like to have surgery or not. OBJECTIVE: Vital Signs Temperature 97.9 F 11/28/19 14:41 Pulse Rate 77 11/28/19 14:41 Respiratory Rate 18 11/28/19 14:41 Blood Pressure 128/58 L 11/28/19 14:41 O2 Sat by Pulse Oximetry (%) 97 11/28/19 10:00 PE;per resident's note CBCD WBC 3.1 K/mm3 (4.0-10.0) L 11/28/19 07:26 RBC 4.09 M/mm3 (3.60-5.2) 11/28/19 07:26 Hgb 13.1 GM/dL (10.7-15.3) 11/28/19 07:26 Hct 37.2 % (32.4-45.2) 11/28/19 07:26 MCV 91.1 fl (80-96) 11/28/19 07:26 MCHC 35.1 g/dl (32.0-36.0) 11/28/19 07:26 RDW 13.2 % (11.6-15.6) 11/28/19 07:26 Plt Count 109 K/MM3 (134-434) L 11/28/19 07:26 MPV 8.1 fl (7.5-11.1) 11/28/19 07:26 CMP Sodium 139 mmol/L (136-145) 11/28/19 07:26 Potassium 4.2 mmol/L (3.5-5.1) 11/28/19 07:26 Chloride 105 mmol/L (98-107) 11/28/19 07:26 Carbon Dioxide 29 mmol/L (21-32) 11/28/19 07:26 Anion Gap 5 MMOL/L (8-16) L 11/28/19 07:26 BUN 4.0 mg/dL (7-18) L 11/28/19 07:26 Creatinine 0.6 mg/dL (0.55-1.3) 11/28/19 07:26 Random Glucose 148 mg/dL (74-106) H 11/28/19 07:26 Calcium 8.4 mg/dL (8.5-10.1) L 11/28/19 07:26 Total Bilirubin 0.7 mg/dL (0.2-1) 11/28/19 07:26 AST 30 U/L (15-37) 11/28/19 07:26 ALT 88 U/L (13-61) H 11/28/19 07:26 Alkaline Phosphatase 233 U/L (45-117) H 11/28/19 07:26 Total Protein 6.1 g/dl (6.4-8.2) L 11/28/19 07:26 Albumin 3.0 g/dl (3.4-5.0) L 11/28/19 07:26 Current Medications Generic Name Dose Route Start Last Admin Trade Name Freq PRN Reason Stop Dose Admin Piperacillin Sod/Tazobactam 50 mls @ 100 mls/hr 11/25/19 18:00 11/28/19 09:32 Sod 3.375 gm/ Dextrose IVPB 100 mls/hr Q8H-IV CARMEN Administration Protocol Ondansetron HCl 4 mg 11/25/19 04:03 Zofran Injection IVPUSH Q6H PRN NAUSEA AND/OR VOMITING Laboratory Tests 11/24/19 11/25/19 11/26/19 19:14 07:20 07:44 Total Bilirubin 1.3 H Direct Bilirubin AST 91 H ALT 148 H Alkaline Phosphatase 243 H Liver GGT Pending Liver Total Bilirubin Pending Liver Fibrosis ALT Pending Liver Haptoglobin Pending Liver Fibrosis Score Pending Liver Fib Fibro Score Pending Necroinflammator Score Pending Necroinflam Pat Score Pending Necroinflammator Grade Pending C-Reactive Protein Total Protein Albumin Triglycerides 76 Cholesterol 165 Total LDL Cholesterol 73 HDL Cholesterol 70 H Lipase 9685 H 895 H 11/26/19 11/27/19 11/28/19 07:44 07:54 07:26 Total Bilirubin 0.7 0.7 Direct Bilirubin 0.5 H 0.3 H AST 46 H 30 ALT 111 H 88 H Alkaline Phosphatase 242 H 233 H Liver GGT Liver Total Bilirubin Liver Fibrosis ALT Liver Haptoglobin Liver Fibrosis Score Liver Fib Fibro Score Necroinflammator Score Necroinflam Pat Score Necroinflammator Grade C-Reactive Protein 9.0 H Total Protein 6.1 L 6.1 L Albumin 3.0 L 3.0 L Triglycerides Cholesterol Total LDL Cholesterol HDL Cholesterol Lipase 452 H Microbiology 11/25/19 01:07 Blood - Peripheral Venous Blood Culture - Preliminary NO GROWTH OBTAINED AFTER 72 HOURS, INCUBATION TO CONTINUE FOR 2 DAYS. 11/25/19 01:07 Blood - Peripheral Venous Blood Culture - Preliminary NO GROWTH OBTAINED AFTER 72 HOURS, INCUBATION TO CONTINUE FOR 2 DAYS. 11/25/19 01:07 Urine - Urine Clean Catch Urine Culture - Final NO GROWTH OBTAINED CT scan: mild extrahepatic and intrahepatic billary tract dilation; gallbladder overdistention. MRI/MRCP recommended Gallbladder US: gallbladder over-distention, mild diffuse wall thickening suggestive of acute cholecystitis. CBD dilatation 1.1cm MRCP: no gross CBD stone. + pericholecystic fluid. ASSESSMENT AND PLAN: This patient is an 89yof with a PMHx of HTN, HLD, Diverticulitis presented to ED with abdominal pain x3 days. and was found to have Acute Pancreatitis/ Cho lecystitis. #Acute Gallstone Pancreatitis: with elevated lipase level of 9k trending down , IVF , GI consult appreciated, and surgery on board, NAD, clears , tolerating well #Acute Cholecystitis: CT/US result as above continue IV antibiotc, sx and GI on the case #Acute Transaminitis: trending down #Hypertension: continue to monitor #Hyperlipidemia: Hold Statins due to elevated liver enzymes , trending down DVT Px:Heparin SQ NPo after Midnight possible surgery in am
--- NOTE | 2019-11-28 21:05 | PN ---
Progress Note, Physician History of Present Illness: Pt alert, afebrile, without abd pain. Has been tolerating diet. Now NPO for possible lap cholecystectomy. - Current Medication List Current Medications: Active Medications Piperacillin Sod/Tazobactam (Sod 3.375 gm/ Dextrose) 50 mls @ 100 mls/hr IVPB Q8H-IV CARMEN; Protocol Last Admin: 11/28/19 17:25 Dose: 100 mls/hr Documented by: - Objective Vital Signs: Vital Signs Temperature 97.9 F 11/28/19 14:41 Pulse Rate 77 11/28/19 14:41 Respiratory Rate 18 11/28/19 14:41 Blood Pressure 128/58 L 11/28/19 14:41 O2 Sat by Pulse Oximetry (%) 97 11/28/19 10:00 Constitutional: Yes: No Distress, Calm Cardiovascular: Yes: Regular Rate and Rhythm Respiratory: Yes: Regular Gastrointestinal: Yes: Normal Bowel Sounds, Soft Genitourinary: Yes: WNL Integumentary: Yes: WNL Neurological: Yes: Alert Labs: CBC, BMP 11/28/19 07:26 11/28/19 07:26 INR, PTT INR 1.13 (0.83-1.09) H 11/26/19 07:44 Microbiology 11/25/19 01:07 Blood - Peripheral Venous Blood Culture - Preliminary NO GROWTH OBTAINED AFTER 72 HOURS, INCUBATION TO CONTINUE FOR 2 DAYS. 11/25/19 01:07 Blood - Peripheral Venous Blood Culture - Preliminary NO GROWTH OBTAINED AFTER 72 HOURS, INCUBATION TO CONTINUE FOR 2 DAYS. 11/25/19 01:07 Urine - Urine Clean Catch Urine Culture - Final NO GROWTH OBTAINED Problem List - Problems (1) Acute pancreatitis Code(s): K85.90 - ACUTE PANCREATITIS WITHOUT NECROSIS OR INFECTION, UNSP Qualifiers: Pancreatitis type: biliary Acute pancreatitis complication: no infection or necrosis Qualified Code(s): K85.10 - Biliary acute pancreatitis without necrosis or infection (2) Cholecystitis, acute Code(s): K81.0 - ACUTE CHOLECYSTITIS (3) Transaminitis Code(s): R74.0 - NONSPEC ELEV OF LEVELS OF TRANSAMNS & LACTIC ACID DEHYDRGNSE (4) HTN (hypertension) Code(s): I10 - ESSENTIAL (PRIMARY) HYPERTENSION Qualifiers: Hypertension type: unspecified Qualified Code(s): I10 - Essential (primary) hypertension (5) Hyperlipidemia Code(s): E78.5 - HYPERLIPIDEMIA, UNSPECIFIED (6) TIA (transient ischemic attack) Code(s): G45.9 - TRANSIENT CEREBRAL ISCHEMIC ATTACK, UNSPECIFIED Assessment/Plan Gallstone Pancreatitis Acute Cholecystitis Pt with resolving abd pain, LFTs/Lipase trending down MRI results noted - possible passed stone, +pericholecystic fluid continue Zosyn Surgery following For possible lap cholecystectomy continue monitor
[2019-11-29] MEDS ORDERED: PIPERACILLIN/TAZOBACTAM 3.375 GM VIAL IVPB ONE ×2 (01:21→10:06)
[2019-11-29] MEDS ORDERED: DEXTROSE 5%-WATER - 50 ML IVPB ONE ×2 (01:22→10:06)
[2019-11-29] MEDS: PIPERACILLIN/TAZOB 3.375 GM 3.375 GM in DEXTROSE 5%-WATER - 50 ML IVPB SCH ×2 (01:41→10:12)
--- NOTE | 2019-11-29 08:43 | PN ---
Progress Note (short form) - Note Progress Note: Attending Surgeon No c/o VSS AF abdo-soft and non tender Labs pending IMP: resolving gallstone pancreatitis PLAN: OR cancelled for today; d/w the patient and her daughter and as per my note yesterday; continue to trend LFT's and bilirubin and lipase; outpatient lawrence rgical follow up. Damir Vo MD FACS
[2019-11-29 09:01] LABS: BASO % 0.7 % (0-2.0); EOS % 3.6 % (0-4.5); HEMATOCRIT 40.2 % (32.4-45.2); HEMOGLOBIN 13.7 GM/dL (10.7-15.3); LYMPH % 21.6 % (8-40); MCH 31.1 pg (25.7-33.7); MCHC 34.1 g/dl (32.0-36.0); MEAN CELL VOLUME 91.4 fl (80-96); MEAN PLT VOLUME 8.1 fl (7.5-11.1); NEUT % 59.1 % (42.8-82.8); PLATELET COUNT 130 K/MM3 (134-434); RDW 12.9 % (11.6-15.6); WHITE BLOOD COUNT 3.8 K/mm3 (4.0-10.0)
[2019-11-29 09:30] LABS: ALBUMIN 3.2 g/dl (3.4-5.0); BILIRUBIN,TOTAL 0.8 mg/dL (0.2-1); BLOOD UREA NITROGEN 7.8 mg/dL (7-18); CALCIUM 8.9 mg/dL (8.5-10.1); CREATININE 0.6 mg/dL (0.55-1.3); POTASSIUM 3.8 mmol/L (3.5-5.1); TOT PROT 6.4 g/dl (6.4-8.2)
--- NOTE | 2019-11-29 10:53 | PN ---
Progress Note, Physician - Current Medication List Current Medications: Active Medications Piperacillin Sod/Tazobactam (Sod 3.375 gm/ Dextrose) 50 mls @ 100 mls/hr IVPB Q8H-IV CARMEN; Protocol Last Admin: 11/29/19 10:12 Dose: 100 mls/hr Documented by: - Objective Vital Signs: Vital Signs Temperature 98.9 F 11/29/19 10:16 Pulse Rate 78 11/29/19 10:16 Respiratory Rate 20 11/29/19 10:16 Blood Pressure 152/83 11/29/19 10:16 O2 Sat by Pulse Oximetry (%) 95 11/29/19 10:16 Labs: CBC, BMP 11/29/19 07:30 11/29/19 07:30 INR, PTT INR 1.13 (0.83-1.09) H 11/26/19 07:44
--- NOTE | 2019-11-29 10:57 | PN.GI ---
GI Progress Note Subjective: Tolerating PO No abdominal pain Inpatient cholecystectomy has been deferred - Objective Vital Signs: Vital Signs Temperature 98.9 F 11/29/19 10:16 Pulse Rate 78 11/29/19 10:16 Respiratory Rate 20 11/29/19 10:16 Blood Pressure 152/83 11/29/19 10:16 O2 Sat by Pulse Oximetry (%) 95 11/29/19 10:16 Constitutional: Calm Eyes: No: Sclera Icterus Cardiovascular: Yes: Regular Rate and Rhythm Respiratory: Yes: CTA Bilaterally Gastrointestinal Inspection: No: Distention ...Auscultate: Yes: Normoactive Bowel Sounds ...Palpate: No: Tenderness ...Percussion: No: Tympanitic Edema: No (No LE edema) Neurological: Yes: Alert Labs: CBC, BMP 11/29/19 07:30 11/29/19 07:30 INR, PTT INR 1.13 (0.83-1.09) H 11/26/19 07:44 Problem List - Problems (1) Acute pancreatitis Assessment/Plan: Clinically improved / liver chemistries improved States that she wants to go home and do some research regarding cholecystectomy. I did advise regarding the possibility of recurrent pancreatitis that could have potentially life threatening sequelae Will sign off. Recall GI as needed Code(s): K85.90 - ACUTE PANCREATITIS WITHOUT NECROSIS OR INFECTION, UNSP Qualifiers: Pancreatitis type: biliary Acute pancreatitis complication: no infection or necrosis Qualified Code(s): K85.10 - Biliary acute pancreatitis without necrosis or infection
--- NOTE | 2019-11-29 12:29 | DS ---
Physical Exam: SUBJECTIVE: Patient seen and examined at bedside. No acute events reported overnight. Today, the patient reports feeling better and does not have any abdominal pain. OBJECTIVE: Vital Signs Period Temp Pulse Resp BP Sys/[place] Pulse Ox Last 24 Hr 97.9 F-98.9 F 73-78 18-20 128-152/58-92 95-96 PHYSICAL EXAM GENERAL: AAOx3, in no acute distress HEENT: NCAT, PERRLA, EOMI, sclera anicteric, conjunctiva clear, oropharynx clear w/o exudates. MMM. NECK: Normal ROM, supple, no lymphadenopathy, JVD, or masses LUNGS: CTABL no wheezes/ rhonchi/ rales. No distress, speaks in full sentences. No increased work of breathing. HEART: RRR, normal S1 S2, no M/R/G, peripheral pulses 2+ and equal b/l ABDOMEN: Soft, NTND, + BS. No guarding or rebound. No hepatomegaly or splenomegaly. MSK: ROM WNL EXTREMITIES: Normal inspection. No peripheral edema. No clubbing or cyanosis. NEUROLOGICAL: CN II-XII intact. Normal speech, normal gait, no focal sensorimotor deficits. SKIN: Warm, Dry, normal turgor, no rashes or lesions noted LABS Laboratory Results - last 24 hr CBC, BMP 11/29/19 07:30 11/29/19 07:30 11/29/19 11/29/19 07:30 07:30 WBC 3.8 L RBC 4.40 Hgb 13.7 Hct 40.2 MCV 91.4 MCH 31.1 MCHC 34.1 RDW 12.9 Plt Count 130 L MPV 8.1 Absolute Neuts (auto) 2.2 Neutrophils % 59.1 Lymphocytes % 21.6 Monocytes % 15.0 H Eosinophils % 3.6 Basophils % 0.7 Nucleated RBC % 0 Sodium 142 Potassium 3.8 Chloride 106 Carbon Dioxide 28 Anion Gap 8 BUN 7.8 Creatinine 0.6 Est GFR (CKD-EPI)AfAm 93.66 Est GFR (CKD-EPI)NonAf 80.81 Random Glucose 107 H Calcium 8.9 Total Bilirubin 0.8 AST 28 ALT 78 H Alkaline Phosphatase 219 H Total Protein 6.4 Albumin 3.2 L HOSPITAL COURSE: 89 y/o female with a PMHx of HTN, HLD, Diverticulitis presenting with abdominal pain x3 days. Admitted for Acute Pancreatitis, Acute Cholecystitis, Tra nsaminitis. Lipase level at admission was 9685 but downtrended to 450 during the course of her stay. LFTs were also elevated at time of admission but downtrended. The patient had a CT scan at admission which showed mild extrahepatic and intrahepatic billary tract dilation; gallbladder overdistentio n. A Gallbladder US showed gallbladder over-distention, mild diffuse wall thickening suggestive of acute cholecystitis. CBD dilatation 1.1cm MRCP was done which showed no gross CBD stone. + pericholecystic fluid. Patient's symptoms continued to improve so ERCP was deferred. Patient was on Zosyn IV antibiotics during her stay. Patient was scheduled to have a cholecystectomy on 11/29/2019 but the patient did not feel ready for the procedure and was concerned about blood products because the patient is a [employer]. Patient was on Heparin SQ as DVT prophylaxis during her stay. Patient was discharged for outpatient followup with general surgery and GI. Date of Admission:11/25/19 11/24/2019-abdomen/pelvis CT-interval development of mild extrahepatic and intrahepatic biliary tract dilatation is identified. moderate gallbladder overdistention with possible mild diffuse gallbladder wall thickening. Trace pericholecystic fluid accumulation is noted. small amount of fluid accumulation is seen adjacent to the pancreatic tail and also abutting the left inferolateral border of the gastric body. 11/24/2019-gallbladder u/s-Gallbladder overdistention is noted with associated mild diffuse wall thickening suggestive of acute cholecystitis. Common bile duct dilatation is seen with a 1.1 cm diameter 11/25/2019-CXR-No acute chest pathology. No sign of failure. 11/25/20190597-INGC-Iv gallstones seen. MRCP images are nondiagnostic due to significant motion however CBD is within normal range size for a patient of this stated age with no filling defect on T2 images. Small pericholecystic fluid as well as peripancreatic edema noted. Conglomerate findings are possibly the sequela of recently passed stone resulting in pancreatitis with reactive pericholecystic fluid. Underlying cholecystitis cannot be excluded. Correlate with patient's clinical history, symptoms, LFTs and bilirubin level. Date of Discharge: 11/29/19 Minutes to complete discharge: 36 Discharge Summary Problems reviewed: Yes Reason For Visit: ACUTE PANCREATITIS, ABDOMINAL PAIN Current Active Problems Abdominal pain (Acute) Acute pancreatitis (Acute) Biliary acute pancreatitis (Acute) Cholecystitis, acute (Acute) Encounter for screening laboratory testing for COVID-19 virus (Acute) Transaminitis (Acute) Condition: Stable - Instructions Diet, Activity, Other Instructions: Your visit: You were admitted to the hospital for abdominal pain. You were found to have inflammation of your gallbladder and pancreas. You were treated with IV fluids and antibiotics with improvement of your symptoms. Medications changes: -Continue to take all home medications as prescribed. Follow up: -Please follow-up with your Online Community Manager, Dr. Oro within 2 weeks. -Please follow-up with your General Surgeon, Dr. Vo within 2 weeks. -Visit with your Primary Care Provider, Dr. Carrasco in 2 weeks and follow up on your liver function tests. Additional Instructions: -You are being discharged to your home. -Please return to the Emergency Department if you experience worsening pain, fevers, chills, severe abdominal pain, shortness of breath, or chest pain, or if you experience any worsening, new or concerning symptoms. Referrals: Damir Vo MD [Staff Physician] - 2 Weeks Callum Carrasco MD [Primary Care Provider] - Raj Oro MD [Staff Physician] - 2 Weeks Disposition: HOME - Home Medications Comprehensive Discharge Medication List: Ambulatory Orders Clopidogrel Bisulfate [Plavix -] 75 mg PO ASDIR 05/03/14 Losartan Potassium 100 mg PO DAILY 05/18/15 Famotidine 20 mg DAILY 11/25/19 This patient is new to me today: No Emergency Visit: No Critical Care patient: No - Discharge Referral Referred to [facility] No ATTENDING PHYSICIAN STATEMENT I saw and evaluated the patient. I reviewed the resident's note and discussed the case with the resident. I agree with the resident's findings and plan as documented. SUBJECTIVE: OBJECTIVE: ASSESSMENT AND PLAN:
[2019-11-29 14:08] VITALS: BP 117/55; PULSE 100; TEMP 98.1
--- NOTE | 2019-11-29 14:31 | PN ---
Teaching Attending Note Name of Resident: Chapin Ibrahim ATTENDING PHYSICIAN STATEMENT I saw and evaluated the patient. I reviewed the resident's note and discussed the case with the resident. I agree with the resident's findings and plan as documented. SUBJECTIVE: Patient is comfortable with NAD, feels better , refused surgery this morning OBJECTIVE: Vital Signs Temperature 98.1 F 11/29/19 14:06 Pulse Rate 100 H 11/29/19 14:06 Respiratory Rate 18 11/29/19 14:06 Blood Pressure 117/55 L 11/29/19 14:06 O2 Sat by Pulse Oximetry (%) 96 11/29/19 14:06 PE:per resident's note CBCD WBC 3.8 K/mm3 (4.0-10.0) L 11/29/19 07:30 RBC 4.40 M/mm3 (3.60-5.2) 11/29/19 07:30 Hgb 13.7 GM/dL (10.7-15.3) 11/29/19 07:30 Hct 40.2 % (32.4-45.2) 11/29/19 07:30 MCV 91.4 fl (80-96) 11/29/19 07:30 MCHC 34.1 g/dl (32.0-36.0) 11/29/19 07:30 RDW 12.9 % (11.6-15.6) 11/29/19 07:30 Plt Count 130 K/MM3 (134-434) L 11/29/19 07:30 MPV 8.1 fl (7.5-11.1) 11/29/19 07:30 CMP Sodium 142 mmol/L (136-145) 11/29/19 07:30 Potassium 3.8 mmol/L (3.5-5.1) 11/29/19 07:30 Chloride 106 mmol/L (98-107) 11/29/19 07:30 Carbon Dioxide 28 mmol/L (21-32) 11/29/19 07:30 Anion Gap 8 MMOL/L (8-16) 11/29/19 07:30 BUN 7.8 mg/dL (7-18) 11/29/19 07:30 Creatinine 0.6 mg/dL (0.55-1.3) 11/29/19 07:30 Random Glucose 107 mg/dL (74-106) H 11/29/19 07:30 Calcium 8.9 mg/dL (8.5-10.1) 11/29/19 07:30 Total Bilirubin 0.8 mg/dL (0.2-1) 11/29/19 07:30 AST 28 U/L (15-37) 11/29/19 07:30 ALT 78 U/L (13-61) H 11/29/19 07:30 Alkaline Phosphatase 219 U/L (45-117) H 11/29/19 07:30 Total Protein 6.4 g/dl (6.4-8.2) 11/29/19 07:30 Albumin 3.2 g/dl (3.4-5.0) L 11/29/19 07:30 Current Medications Generic Name Dose Route Start Last Admin Trade Name Freq PRN Reason Stop Dose Admin Piperacillin Sod/Tazobactam 50 mls @ 100 mls/hr 11/25/19 18:00 11/29/19 10:12 Sod 3.375 gm/ Dextrose IVPB 100 mls/hr Q8H-IV CARMEN Administration Protocol Home Medications Medication Instructions Recorded Clopidogrel Bisulfate [Plavix -] 75 mg PO ASDIR 05/03/14 Losartan Potassium 100 mg PO DAILY 05/18/15 Famotidine 20 mg DAILY 11/25/19 CT scan: mild extrahepatic and intrahepatic billary tract dilation; gallbladder overdistention. MRI/MRCP recommended Gallbladder US: gallbladder over-distention, mild diffuse wall thickening suggestive of acute cholecystitis. CBD dilatation 1.1cm MRCP: no gross CBD stone. + pericholecystic fluid. ASSESSMENT AND PLAN: This patient is an 89yof with a PMHx of HTN, HLD, Diverticulitis presented to ED with abdominal pain x3 days. and was found to have Acute Pancreatitis/ Cholecystitis. #Acute Gallstone Pancreatitis: resolved , presented with elevated lipase level of 9k trended down , patient will follow up with GI and surgery as an out patient. tolerating diet well , GI explained the patient the risk of not having the surgery. #Acute Cholecystitis: CT/US result as above , completed 5 days of IV antibiotc,patient refused surgery , feels better , will go home and follow up with sx&GI #Acute Transaminitis: trended down #Hypertension: continue home meds #Hyperlipidemia: continue to hold Statins due to elevated liver enzymes , until normalizes dc patient home with follow up visit with surgery N GI
[2019-11-30 04:06] LABS: FIBROSIS SCORE. 0.57 (0.00-0.21); HCV ALPHA 2 MACRO CHART 153 mg/dL (110-276); NECRO.INFLAM ACT.SCORE 0.88 (0.00-0.17); NECROINFLAM. ACTIVITY GRADE A3-Severe activity (.)
== END 2019-11-29 15:52 | disposition home or self-care (01) | DRG 444 ==
LOC: FER 18:21 → J6S 11-25 02:10
PROVIDERS: ADMIT Internal Medicine; ATTEND Internal Medicine
DX: K81.0 Acute cholecystitis (principal); K85.10 Biliary acute pancreatitis without necrosis or infection; I10 Essential (primary) hypertension; E78.5 Hyperlipidemia, unspecified; K21.9 Gastro-esophageal reflux disease without esophagitis; G43.909 Migraine, unspecified, not intractable, without status migrainosus; F41.9 Anxiety disorder, unspecified; R74.0 Nonspecific elevation of levels of transaminase and lactic acid dehydrogenase [LDH]
CPT/HCPCS: 36415; 71045-TC-FY; 74177-TC; 74181-TC; 76705-TC; 80048; 80053; 80061; 80076; 81003; 81015; 82150; 82172; 82248; 82977; 83010; 83540; 83550; 83605; 83690; 83721; 83735; 83883; 84100; 84460; 85025; 85610; 85730; 86140; 86704; 86706; 86707; 86708; 86709; 86850; 86870; 86900; 86901; 86902; 87040; 87086; 87340; 87350; 93005; 97116-GP; 97161-GP; 99285-25; J0131; Q9967; U0003